=== PATIENT | female | born 1975 | race Caucasian/White ===

== ENCOUNTER 2016-09-21 08:00 | Outpatient (CLI) | payer MEDICARE, MEDICAID ==
[2016-09-21 17:58] LABS: BILIRUBIN,URINE NEGATIVE (NEGATIVE)
[2016-09-21 18:18] LABS: ALBUMIN/GLOBULIN RATIO 1.3 (1.0-2.2); BILIRUBIN,TOTAL 0.4 mg/dL (0.2-1.0); BUN - BLOOD UREA NITROGEN 5 mg/dL (6-20); CALCIUM 8.9 mg/dL (8.5-10.3); CARBON DIOXIDE - CO2 19 mmol/L (21-32); CHLORIDE 107 mmol/L (101-111); CHOL/HDL RATIO 5.7 (<4.4); CHOLESTEROL 238 mg/dL; CREATININE 0.4 mg/dL (0.4-1.0); GFR - MDRD 176 (>89); GLUCOSE 78 mg/dL (70-100); HDL CHOLESTEROL 42 mg/dL; LDL/HDL RATIO 3.8 (<4.4); POTASSIUM 4.1 mmol/L (3.5-5.0); SODIUM 135 mmol/L (135-145); TOTAL PROTEIN 6.9 g/dL (6.7-8.2); TRIGLYCERIDES 178 mg/dL; VLDL CHOLESTEROL 36 mg/dL; WBC,URINE 0-3 /HPF (0-5)
[2016-09-21 18:25] LABS: BASOPHILS # (AUTO) 0.1 10^3/uL (0.0-0.1); BASOPHILS % (AUTO) 0.7 %; EOSINOPHILS # (AUTO) 0.2 10^3/uL (0.0-0.7); EOSINOPHILS % (AUTO) 2.7 %; HCT - HEMATOCRIT 33.2 % (37.0-47.0); HGB - HEMOGLOBIN 10.5 g/dL (12.0-16.0); LYMPHOCYTES # (AUTO) 3.5 10^3/uL (1.5-3.5); LYMPHOCYTES % (AUTO) 38.3 %; MEAN CORPUSCULAR HEMOGLOBIN 22.5 pg (27.0-31.0); MEAN CORPUSCULAR HGB CONC 31.6 g/dL (32.0-36.0); MEAN CORPUSCULAR VOLUME 71.2 fL (81.0-99.0); MEAN PLATELET VOLUME 7.2 fL (7.9-10.8); MONOCYTES # (AUTO) 0.6 10^3/uL (0.0-1.0); MONOCYTES % (AUTO) 6.3 %; NEUTROPHILS # (AUTO) 4.7 10^3/uL (1.5-6.6); NUCLEATED RED BLOOD CELLS AUTO 0.1 /100WBC; RED BLOOD COUNT 4.66 10^6/uL (4.20-5.40); RED CELL DISTRIBUTION WIDTH 18.7 % (12.0-15.0); UNCORRECTED WHITE BLOOD COUNT 9.1 x10^3/uL; WHITE BLOOD COUNT 9.1 x10^3/uL (4.8-10.8)
[2016-09-21 18:38] LABS: HEMOGLOBIN A1C 0.38 g/dL
[2016-09-21 18:50] LABS: THYROID STIMULATING HORMONE 2.77 uIU/mL (0.34-5.60)
[2016-09-21 19:38] LABS: PLATELET ESTIMATE, MANUAL NORMAL (130-450,000) (NORMAL); PLATELET MORPHOLOGY NORMAL APPEARANCE (NORMAL)
[2016-09-21 19:40] LABS: WBC MORPHOLOGY (MULTIPLE) NORMAL APPEARANCE (NORMAL)
== END 2016-09-21 23:59 ==
LOC: LAB.S 08:00
PROVIDERS: ATTEND Nurse Practitioner Family
DX: E11.9 Type 2 diabetes mellitus without complications (principal)
CPT/HCPCS: 36415; 80053; 80061; 81001; 82043; 82570; 83036; 84439; 84443; 85025; 87086

== ENCOUNTER 2016-10-19 10:59 | Outpatient (CLI) | payer MEDICARE, MEDICAID | END 2016-10-19 11:00 | disposition home or self-care (01) | DX: D53.9 Nutritional anemia, unspecified (principal) ==

== ENCOUNTER 2017-01-18 12:01 | Outpatient (CLI) | payer MEDICAID, MEDICARE ==
[2017-01-18 18:12] LABS: BILIRUBIN,DIRECT 0.1 mg/dL (0.1-0.5); BILIRUBIN,TOTAL 0.2 mg/dL (0.2-1.0); CHOL/HDL RATIO 3.6 (<4.4); CHOLESTEROL 155 mg/dL; HDL CHOLESTEROL 43 mg/dL; IRON 94 ug/dL (28-170); LDL/HDL RATIO 1.9 (<4.4); TOTAL IRON BINDING CAPACITY 361 ug/dL (250-450); TRANSFERRIN 258 mg/dL (192-382); TRIGLYCERIDES 147 mg/dL; VLDL CHOLESTEROL 29 mg/dL
[2017-01-18 18:20] LABS: THYROID STIMULATING HORMONE 1.71 uIU/mL (0.34-5.60)
[2017-01-18 18:21] LABS: BASOPHILS # (AUTO) 0.1 10^3/uL (0.0-0.1); BASOPHILS % (AUTO) 0.7 %; EOSINOPHILS # (AUTO) 0.3 10^3/uL (0.0-0.7); FERRITIN 19.5 ng/mL (11.0-306.8); HCT - HEMATOCRIT 42.1 % (37.0-47.0); HGB - HEMOGLOBIN 14.1 g/dL (12.0-16.0); LYMPHOCYTES # (AUTO) 2.7 10^3/uL (1.5-3.5); LYMPHOCYTES % (AUTO) 25.9 %; MEAN CORPUSCULAR HEMOGLOBIN 29.9 pg (27.0-31.0); MEAN CORPUSCULAR HGB CONC 33.5 g/dL (32.0-36.0); MEAN CORPUSCULAR VOLUME 89.4 fL (81.0-99.0); MEAN PLATELET VOLUME 7.5 fL (7.9-10.8); MONOCYTES # (AUTO) 0.5 10^3/uL (0.0-1.0); MONOCYTES % (AUTO) 4.7 %; NEUTROPHILS # (AUTO) 6.8 10^3/uL (1.5-6.6); NEUTROPHILS % (AUTO) 65.7 %; RED CELL DISTRIBUTION WIDTH 17.8 % (12.0-15.0); UNCORRECTED WHITE BLOOD COUNT 10.4 x10^3/uL; WHITE BLOOD COUNT 10.4 x10^3/uL (4.8-10.8)
[2017-01-18 19:56] LABS: PLATELET ESTIMATE, MANUAL NORMAL (130-450,000) (NORMAL); PLATELET MORPHOLOGY NORMAL APPEARANCE (NORMAL)
[2017-01-18 19:57] LABS: WBC MORPHOLOGY (MULTIPLE) NORMAL APPEARANCE (NORMAL)
== END 2017-01-18 12:02 | disposition home or self-care (01) ==
LOC: LAB.S 12:01
PROVIDERS: ATTEND Nurse Practitioner Family
DX: E78.5 Hyperlipidemia, unspecified (principal); D53.9 Nutritional anemia, unspecified; E03.9 Hypothyroidism, unspecified
CPT/HCPCS: 36415; 80061; 80076; 82728; 83540; 84439; 84443; 84466; 85025

== ENCOUNTER 2017-06-21 08:58 | Outpatient (CLI) | payer MEDICARE, MEDICAID ==
[2017-06-21 17:55] LABS: BASOPHILS % (AUTO) 0.6 %; EOSINOPHILS % (AUTO) 3.3 %; HGB - HEMOGLOBIN 13.6 g/dL (12.0-16.0); LYMPHOCYTES % (AUTO) 12.8 %; MEAN CORPUSCULAR HEMOGLOBIN 30.5 pg (27.0-31.0); MEAN CORPUSCULAR HGB CONC 32.8 g/dL (32.0-36.0); MEAN PLATELET VOLUME 7.1 fL (7.9-10.8); MONOCYTES % (AUTO) 6.4 %; NEUTROPHILS % (AUTO) 76.9 %; PLT - PLATELET COUNT 360 10^3/uL (130-450); RED BLOOD COUNT 4.45 10^6/uL (4.20-5.40)
[2017-06-21 18:04] LABS: ABNORMAL LYMPHS % (MANUAL) 0 %
[2017-06-21 19:37] LABS: % IRON SATURATION 26 % (20-50); IRON 82 ug/dL (28-170); TOTAL IRON BINDING CAPACITY 314 ug/dL (250-450); TRANSFERRIN 224 mg/dL (192-382)
[2017-06-21 19:51] LABS: BAND NEUTROPHILS % (MANUAL) 10 %; DIFFERENTIAL COMMENT MANUAL DIFFERENTIAL; EOSINOPHILS # (MANUAL) 0.8 10^3/uL (0-0.7); LYMPHOCYTES # (MANUAL) 1.9 10^3/uL (1.5-3.5); LYMPHOCYTES % (MANUAL) 10 %; MONOCYTES # (MANUAL) 0.8 10^3/uL (0.0-1.0); NEUTROPHILS # (MANUAL) 15.6 10^3/uL (1.5-6.6); NEUTROPHILS % (MANUAL) 72 %; PLATELET ESTIMATE, MANUAL NORMAL (130-450,000) (NORMAL); PLATELET MORPHOLOGY NORMAL APPEARANCE (NORMAL); RBC MORPHOLOGY (MULTIPLE) NORMAL APPEARANCE (NORMAL)
[2017-06-21 20:21] LABS: HB2 TOTAL 14.7 g/dL; HEMOGLOBIN A1C 0.5 g/dL; HEMOGLOBIN A1C % 5.3 % (4.6-6.2)
== END 2017-06-21 08:59 | disposition home or self-care (01) ==
LOC: LAB.S 08:58
PROVIDERS: ATTEND Nurse Practitioner Family
DX: D64.9 Anemia, unspecified (principal); E11.9 Type 2 diabetes mellitus without complications
CPT/HCPCS: 36415; 82728; 83036; 83540; 84466; 85025

== ENCOUNTER 2018-01-31 09:19 | Outpatient (CLI) | payer MEDICARE, MEDICAID ==
[2018-01-31 18:21] LABS: BASOPHILS # (AUTO) 0.1 10^3/uL (0.0-0.1); BASOPHILS % (AUTO) 0.5 %; EOSINOPHILS # (AUTO) 0.3 10^3/uL (0.0-0.7); HGB - HEMOGLOBIN 13.2 g/dL (12.0-16.0); LYMPHOCYTES # (AUTO) 2.4 10^3/uL (1.5-3.5); LYMPHOCYTES % (AUTO) 21.6 %; MEAN CORPUSCULAR HEMOGLOBIN 31.5 pg (27.0-31.0); MEAN CORPUSCULAR HGB CONC 32.9 g/dL (32.0-36.0); MEAN CORPUSCULAR VOLUME 95.9 fL (81.0-99.0); MEAN PLATELET VOLUME 7.3 fL (7.9-10.8); MONOCYTES # (AUTO) 0.7 10^3/uL (0.0-1.0); MONOCYTES % (AUTO) 6.2 %; NEUTROPHILS # (AUTO) 7.8 10^3/uL (1.5-6.6); NEUTROPHILS % (AUTO) 68.7 %; PLT - PLATELET COUNT 277 10^3/uL (130-450); RED BLOOD COUNT 4.21 10^6/uL (4.20-5.40); RED CELL DISTRIBUTION WIDTH 13.3 % (12.0-15.0); WHITE BLOOD COUNT 11.3 x10^3/uL (4.8-10.8)
[2018-01-31 19:06] LABS: ALBUMIN 3.8 g/dL (3.2-5.5); ALBUMIN/GLOBULIN RATIO 1.4 (1.0-2.2); ALKALINE PHOSPHATASE 32 IU/L (42-121); ALT ALANINE AMINOTRANSFERASE 25 IU/L (10-60); AST ASPARTATE AMINOTRANSFERASE 23 IU/L (10-42); BILIRUBIN,TOTAL 0.3 mg/dL (0.2-1.0); BUN - BLOOD UREA NITROGEN 11 mg/dL (6-20); CALCIUM 8.7 mg/dL (8.5-10.3); CARBON DIOXIDE - CO2 25 mmol/L (21-32); CHLORIDE 103 mmol/L (101-111); CHOL/HDL RATIO 2.7 (<4.4); CHOLESTEROL 145 mg/dL; CREATININE 0.3 mg/dL (0.4-1.0); GFR - MDRD 244 (>89); GLUCOSE 95 mg/dL (70-100); HDL CHOLESTEROL 53 mg/dL; LDL CHOLESTEROL,CALCULATED 79 mg/dL; LDL/HDL RATIO 1.5 (<4.4); SODIUM 137 mmol/L (135-145); TOTAL PROTEIN 6.5 g/dL (6.7-8.2); VLDL CHOLESTEROL 13 mg/dL
[2018-01-31 19:27] LABS: HB2 TOTAL 13.5 g/dL; HEMOGLOBIN A1C 0.41 g/dL; HEMOGLOBIN A1C % 4.9 % (4.6-6.2)
== END 2018-01-31 09:20 | disposition home or self-care (01) ==
LOC: LAB.S 09:19
PROVIDERS: ATTEND Nurse Practitioner Family
DX: E11.9 Type 2 diabetes mellitus without complications (principal); E03.9 Hypothyroidism, unspecified
CPT/HCPCS: 36415; 80053; 80061; 82043; 83036; 83721; 84443; 85025

== ENCOUNTER 2018-06-07 12:22 | Outpatient (CLI) | payer MEDICAID, MEDICARE ==
[2018-06-07 18:18] LABS: THYROID STIMULATING HORMONE 1.98 uIU/mL (0.34-5.60)
[2018-06-07 18:20] LABS: FREE T4 (FREE THYROXINE) 0.74 ng/dL (0.58-1.64)
== END 2018-06-07 23:59 | disposition home or self-care (01) ==
LOC: LAB.F 12:22
PROVIDERS: ATTEND Nurse Practitioner Family
DX: E03.9 Hypothyroidism, unspecified (principal)
CPT/HCPCS: 36415; 84439; 84443

== ENCOUNTER 2018-08-15 08:00 | Outpatient (CLI) | payer MEDICARE ==
[2018-08-15 18:26] LABS: HB2 TOTAL 14.6 g/dL; HEMOGLOBIN A1C 0.52 g/dL; HEMOGLOBIN A1C % 5.4 % (4.6-6.2)
== END 2018-08-15 23:59 | disposition home or self-care (01) ==
LOC: LAB.S 08:00
PROVIDERS: ATTEND Nurse Practitioner Family
DX: E11.9 Type 2 diabetes mellitus without complications (principal)
CPT/HCPCS: 36415; 83036

== ENCOUNTER 2019-08-30 06:25 | Outpatient (CLI) | payer MEDICARE ==
[2019-08-30 06:41] LABS: BASOPHILS # (AUTO) 0.1 10^3/uL (0.0-0.1); BASOPHILS % (AUTO) 0.6 %; EOSINOPHILS # (AUTO) 0.5 10^3/uL (0.0-0.7); EOSINOPHILS % (AUTO) 3.2 %; HGB - HEMOGLOBIN 14.1 g/dL (12.0-16.0); LYMPHOCYTES # (AUTO) 3.9 10^3/uL (1.5-3.5); LYMPHOCYTES % (AUTO) 27.5 %; MEAN CORPUSCULAR HEMOGLOBIN 32.1 pg (27.0-31.0); MEAN CORPUSCULAR VOLUME 94.5 fL (81.0-99.0); MEAN PLATELET VOLUME 8.4 fL (7.9-10.8); MONOCYTES # (AUTO) 0.9 10^3/uL (0.0-1.0); MONOCYTES % (AUTO) 6.4 %; NEUTROPHILS # (AUTO) 8.7 10^3/uL (1.5-6.6); NEUTROPHILS % (AUTO) 61.8 %; PLT - PLATELET COUNT 292 10^3/uL (130-450); RED BLOOD COUNT 4.39 10^6/uL (4.20-5.40); RED CELL DISTRIBUTION WIDTH 12.8 % (12.0-15.0); WHITE BLOOD COUNT 14.2 x10^3/uL (4.8-10.8)
[2019-08-30 07:00] LABS: ALBUMIN 3.8 g/dL (3.2-5.5); ALBUMIN/GLOBULIN RATIO 1.2 (1.0-2.2); ALKALINE PHOSPHATASE 44 IU/L (42-121); ALT ALANINE AMINOTRANSFERASE 19 IU/L (10-60); AST ASPARTATE AMINOTRANSFERASE 21 IU/L (10-42); BILIRUBIN,TOTAL 0.5 mg/dL (0.2-1.0); BUN - BLOOD UREA NITROGEN 10 mg/dL (6-20); CALCIUM 9.4 mg/dL (8.5-10.3); CARBON DIOXIDE - CO2 25 mmol/L (21-32); CHLORIDE 102 mmol/L (101-111); CHOL/HDL RATIO 4.4 (<4.4); CHOLESTEROL 215 mg/dL; CREATININE 0.5 mg/dL (0.4-1.0); GLUCOSE 106 mg/dL (70-100); HDL CHOLESTEROL 49 mg/dL; LDL CHOLESTEROL,CALCULATED 132 mg/dL; LDL/HDL RATIO 2.7 (<4.4); SODIUM 137 mmol/L (135-145); TOTAL PROTEIN 6.9 g/dL (6.7-8.2); VLDL CHOLESTEROL 34 mg/dL
[2019-08-30 07:28] LABS: HB2 TOTAL 14.6 g/dL; HEMOGLOBIN A1C 0.52 g/dL; HEMOGLOBIN A1C % 5.4 % (4.6-6.2)
== END 2019-08-30 06:26 | disposition home or self-care (01) ==
LOC: LAB 06:25
PROVIDERS: ATTEND Registered Nurse
DX: E11.9 Type 2 diabetes mellitus without complications (principal); R94.5 Abnormal results of liver function studies; J45.909 Unspecified asthma, uncomplicated; E03.9 Hypothyroidism, unspecified; E78.5 Hyperlipidemia, unspecified; F41.9 Anxiety disorder, unspecified; F32.9 Major depressive disorder, single episode, unspecified
CPT/HCPCS: 36415; 80053; 80061; 83036; 83721; 84443; 85025

== ENCOUNTER 2019-11-22 08:00 | Outpatient (CLI) | payer MEDICARE ==
[2019-11-22 15:11] LABS: BASOPHILS # (AUTO) 0.1 10^3/uL (0.0-0.1); BASOPHILS % (AUTO) 0.6 %; EOSINOPHILS # (AUTO) 0.4 10^3/uL (0.0-0.7); EOSINOPHILS % (AUTO) 3.6 %; HGB - HEMOGLOBIN 14.6 g/dL (12.0-16.0); LYMPHOCYTES # (AUTO) 3.4 10^3/uL (1.5-3.5); LYMPHOCYTES % (AUTO) 27.7 %; MEAN CORPUSCULAR HEMOGLOBIN 31.7 pg (27.0-31.0); MEAN CORPUSCULAR HGB CONC 33.3 g/dL (32.0-36.0); MEAN CORPUSCULAR VOLUME 95.2 fL (81.0-99.0); MEAN PLATELET VOLUME 9.2 fL (7.9-10.8); MONOCYTES # (AUTO) 0.9 10^3/uL (0.0-1.0); MONOCYTES % (AUTO) 7.3 %; NEUTROPHILS # (AUTO) 7.3 10^3/uL (1.5-6.6); NEUTROPHILS % (AUTO) 60.5 %; PLT - PLATELET COUNT 295 10^3/uL (130-450); RED CELL DISTRIBUTION WIDTH 12.4 % (12.0-15.0); WHITE BLOOD COUNT 12.1 x10^3/uL (4.8-10.8)
[2019-11-22 15:39] LABS: ALBUMIN 4.1 g/dL (3.2-5.5); ALBUMIN/GLOBULIN RATIO 1.5 (1.0-2.2); BILIRUBIN,TOTAL 0.2 mg/dL (0.2-1.0); CALCIUM 9.5 mg/dL (8.5-10.3); CREATININE 0.4 mg/dL (0.4-1.0); TOTAL PROTEIN 6.8 g/dL (6.7-8.2)
[2019-11-23 08:58] LABS: MAGNESIUM 1.8 mg/dL (1.7-2.8)
== END 2019-11-22 23:59 | disposition home or self-care (01) ==
LOC: LAB.S 08:00
PROVIDERS: ATTEND Physician Assistant
DX: N39.0 Urinary tract infection, site not specified (principal); R25.2 Cramp and spasm
CPT/HCPCS: 36415; 80053; 82550; 83735; 85025; 87086

== ENCOUNTER 2020-01-16 18:42 | Inpatient (IN) | payer MEDICARE, MEDICAID ==
--- NOTE | 2020-01-16 19:58 | ED Physician Documentation ---
PD HPI SKIN - Stated complaint Stated Complaint: FEVER - Chief complaint Chief Complaint: Wound - History obtained from History obtained from: Patient - Additional information Additional information: Patient is a 44-year-old female who presents with a chief complaint of right gluteal skin infection with a history of MRSA also reports fevers of 102 at home. No treatment prior to arrival. She is on metformin as well.She denies any history of IV drug abuse. Review of Systems Constitutional: reports: Fever, Reviewed and negative Eyes: reports: Reviewed and negative Ears: reports: Reviewed and negative Nose: reports: Reviewed and negative Throat: reports: Reviewed and negative Cardiac: reports: Reviewed and negative Respiratory: reports: Reviewed and negative GI: reports: Reviewed and negative : reports: Reviewed and negative Skin: reports: Lesions Musculoskeletal: reports: Reviewed and negative Neurologic: reports: Reviewed and negative Psychiatric: reports: Reviewed and negative Endocrine: reports: Reviewed and negative Immunocompromised: reports: Reviewed and negative PD PAST MEDICAL HISTORY - Past Medical History Cardiovascular: High cholesterol Respiratory: Asthma Endocrine/Autoimmune: HyPOthyroidism, Type 2 diabetes GI: None : None HEENT: None Psych: None Musculoskeletal: None Derm: Other drug resistant infections - Past Surgical History Past Surgical History: Yes - Present Medications Home Medications: Ambulatory Orders Medication Instructions Recorded Confirmed Albuterol [Proventil Hfa] 1 puffs INH ONCE PRN 08/18/12 12/15/15 Baclofen 20 mg PO TID 08/18/12 12/15/15 DULoxetine [Cymbalta] 60 mg PO DAILY 08/18/12 12/15/15 Levothyroxine [Synthroid] 50 mcg PO QDAC 08/18/12 12/15/15 Metformin HCl [Fortamet] 850 mg PO TID 08/18/12 12/15/15 Sulfamethoxazole/Trimethoprim 1 each PO BID 7 Days tablet 12/15/15 [Bactrim Ds Tablet] - Allergies Allergies/Adverse Reactions: Allergies Allergy/AdvReac Type Severity Reaction Status Date / Time Penicillins Allergy Severe See Verified 11/07/14 06:05 comments - Social History Does the pt smoke?: Yes Smoking Status: Current every day smoker Does the pt drink ETOH?: Yes Does the pt have substance abuse?: Yes - POLST Patient has POLST: No PD ED PE NORMAL - Vitals Vital signs reviewed: Yes - General General: Alert and oriented X 3, No acute distress - HEENT HEENT: PERRL - Neck Neck: Supple, no meningeal sign - Cardiac Cardiac: RRR, No murmur - Respiratory Respiratory: Clear bilaterally - Abdomen Abdomen: Normal bowel sounds, Soft, Non tender, Non distended - Rectal Rectal: Other (Female nurse in the room for exam on the right gluteal region there is approximately a 10 cm x 5 cm area of induration without fluctuance there is diffuse erythema as well there is no involvement near the anus. There is no crepitus. No inguinal lymphadenopathy.) - Derm Derm: Warm and dry - Extremities Extremities: No deformity - Neuro Neuro: Alert and oriented X 3 - Psych Psych: Normal mood, Normal affect Results - Vitals Vitals: Vital Signs - 24 hr 01/16/20 01/16/20 18:48 21:00 Temperature 37.7 C H 37.5 C Heart Rate 112 H 63 Respiratory 18 16 Rate Blood Pressure 124/64 102/62 O2 Saturation 97 98 Oxygen O2 Source Room air - Labs Labs: Laboratory Tests 01/16/20 01/16/20 01/16/20 20:15 20:28 20:28 WBC 24.4 H RBC 3.85 L Hgb 12.5 Hct 36.2 L MCV 94.0 MCH 32.5 H MCHC 34.5 RDW 12.6 Plt Count 195 MPV 9.0 Neut # (Auto) Not Reportable Lymph # (Auto) Not Reportable [place] # (Auto) Not Reportable Eos # (Auto) Not Reportable Baso # (Auto) Not Reportable Absolute Nucleated RBC Not Reportable Total Counted 100 Band Neuts % (Manual) 4 Abnorm Lymph % (Manual) 0 Nucleated RBC % Not Reportable Neutrophils # (Manual) 21.0 H Lymphocytes # (Manual) 2.0 Monocytes # (Manual) 1.5 H Eosinophils # (Manual) 0.0 Basophils # (Manual) 0.0 Differential Comment MANUAL DIFFERENTIAL Platelet Estimate NORMAL (130-450,000) RBC Morph Micro Appear NORMAL APPEARANCE PT INR APTT Sodium 132 L Potassium 3.7 Chloride 99 L Carbon Dioxide 23 Anion Gap 10.0 BUN 8 Creatinine 0.5 Estimated GFR (MDRD) 134 Glucose 103 H Lactic Acid Calcium 8.6 Total Bilirubin 0.5 AST 15 ALT 14 Alkaline Phosphatase 53 Total Creatine Kinase 67 Total Protein 6.3 L Albumin 2.9 L Globulin 3.4 Albumin/Globulin Ratio 0.9 L Lipase 23 Urine Color YELLOW Urine Clarity CLEAR Urine pH 7.0 Ur Specific [place] 1.010 Urine Protein NEGATIVE Urine Glucose (UA) NEGATIVE Urine Ketones NEGATIVE Urine Occult Blood NEGATIVE Urine Nitrite NEGATIVE Urine Bilirubin NEGATIVE Urine Urobilinogen 0.2 (NORMAL) Ur Leukocyte Esterase NEGATIVE Ur Microscopic Review NOT INDICATED Urine Culture Comments NOT INDICATED Urine HCG, Qual NEGATIVE Urine Opiates Screen NEGATIVE Ur Oxycodone Screen NEGATIVE Urine Methadone Screen NEGATIVE Ur Propoxyphene Screen NEGATIVE Ur Barbiturates Screen NEGATIVE Ur Tricyclics Screen NEGATIVE Ur Phencyclidine Scrn NEGATIVE Ur Amphetamine Screen NEGATIVE U Methamphetamines Scrn NEGATIVE U Benzodiazepines Scrn NEGATIVE Urine Cocaine Screen NEGATIVE U Cannabinoids Screen POSITIVE H Ethyl Alcohol < 5.0 01/16/20 01/16/20 20:28 20:28 WBC RBC Hgb Hct MCV MCH MCHC RDW Plt Count MPV Neut # (Auto) Lymph # (Auto) [place] # (Auto) Eos # (Auto) Baso # (Auto) Absolute Nucleated RBC Total Counted Band Neuts % (Manual) Abnorm Lymph % (Manual) Nucleated RBC % Neutrophils # (Manual) Lymphocytes # (Manual) Monocytes # (Manual) Eosinophils # (Manual) Basophils # (Manual) Differential Comment Platelet Estimate RBC Morph Micro Appear PT 16.2 H INR 1.5 H APTT 31.7 Sodium Potassium Chloride Carbon Dioxide Anion Gap BUN Creatinine Estimated GFR (MDRD) Glucose Lactic Acid 0.7 Calcium Total Bilirubin AST ALT Alkaline Phosphatase Total Creatine Kinase Total Protein Albumin Globulin Albumin/Globulin Ratio Lipase Urine Color Urine Clarity Urine pH Ur Specific [place] Urine Protein Urine Glucose (UA) Urine Ketones Urine Occult Blood Urine Nitrite Urine Bilirubin Urine Urobilinogen Ur Leukocyte Esterase Ur Microscopic Review Urine Culture Comments Urine HCG, Qual Urine Opiates Screen Ur Oxycodone Screen Urine Methadone Screen Ur Propoxyphene Screen Ur Barbiturates Screen Ur Tricyclics Screen Ur Phencyclidine Scrn Ur Amphetamine Screen U Methamphetamines Scrn U Benzodiazepines Scrn Urine Cocaine Screen U Cannabinoids Screen Ethyl Alcohol PD MEDICAL DECISION MAKING - ED course Complexity details: reviewed old records, reviewed results, re-evaluated patient, d/w patient ED course: 44-year-old female presents with fever and tachycardia and leukocytosis blood cultures were drawn x2 as well as lactate empirically treated with Rocephin and vancomycin given her history of MRSA. CT scan shows no signs of free air. I did perform a rapid bedside ultrasound that showed no obvious abscess. Patient will will be admitted to the hospitalist. - Consults Consults: Discussed case with (dr ortiz will admit) Departure - Departure Disposition: 66 [facility] DC/[facility] Clinical Impression: Cellulitis, gluteal, right Condition: Stable Discharge Date/Time: 01/16/20 23:45
[2020-01-16] MEDS ORDERED: SODIUM CHLORIDE 0.9% 1,000 ML IV STA (20:12)
[2020-01-16] MEDS ORDERED: CLINDAMYCIN 600 MG/50 ML 50 ML IV ONE (20:12)
[2020-01-16] MEDS ORDERED: ACETAMINOPHEN 1,000 MG/100 ML 100 ML IV ONE (20:13)
[2020-01-16] MEDS ORDERED: ONDANSETRON 4 MG/2 ML VIAL IVP STA (20:13)
[2020-01-16] MEDS ORDERED: MORPHINE 2 MG/ML CARPUJECT IVP STA (20:13)
[2020-01-16 20:39] LABS: BASOPHILS % (AUTO) 0.5 %; EOSINOPHILS % (AUTO) 0.1 %; HGB - HEMOGLOBIN 12.5 g/dL (12.0-16.0); LYMPHOCYTES % (AUTO) 7.2 %; MEAN CORPUSCULAR HEMOGLOBIN 32.5 pg (27.0-31.0); MEAN CORPUSCULAR HGB CONC 34.5 g/dL (32.0-36.0); MONOCYTES % (AUTO) 6.4 %; NEUTROPHILS % (AUTO) 83.9 %; PLT - PLATELET COUNT 195 10^3/uL (130-450); RED BLOOD COUNT 3.85 10^6/uL (4.20-5.40); RED CELL DISTRIBUTION WIDTH 12.6 % (12.0-15.0); WHITE BLOOD COUNT 24.4 x10^3/uL (4.8-10.8)
[2020-01-16 20:42] LABS: ABNORMAL LYMPHS % (MANUAL) 0 %
[2020-01-16 20:48] LABS: INR 1.5 (0.8-1.2); PT - PROTHROMBIN TIME 16.2 secs (9.9-12.6)
[2020-01-16] MEDS ORDERED: IOVERSOL 320 100 ML VIAL IVP ONE ×2 (20:52→22:09)
[2020-01-16 20:53] LABS: ALBUMIN 2.9 g/dL (3.2-5.5); ALBUMIN/GLOBULIN RATIO 0.9 (1.0-2.2); ALKALINE PHOSPHATASE 53 IU/L (42-121); ALT ALANINE AMINOTRANSFERASE 14 IU/L (10-60); AST ASPARTATE AMINOTRANSFERASE 15 IU/L (10-42); BILIRUBIN,TOTAL 0.5 mg/dL (0.2-1.0); BUN - BLOOD UREA NITROGEN 8 mg/dL (6-20); CALCIUM 8.6 mg/dL (8.5-10.3); CARBON DIOXIDE - CO2 23 mmol/L (21-32); CHLORIDE 99 mmol/L (101-111); CK- CREATINE KINASE 67 IU/L (22-269); CREATININE 0.5 mg/dL (0.4-1.0); GLUCOSE 103 mg/dL (70-100); LIPASE 23 U/L (22-51); SODIUM 132 mmol/L (135-145); TOTAL PROTEIN 6.3 g/dL (6.7-8.2)
[2020-01-16 20:55] LABS: PARTIAL THROMBOPLASTIN TIME 31.7 secs (24.9-33.3)
[2020-01-16] MEDS ORDERED: VANCOMYCIN INJ 1 GM in SODIUM CHLORIDE 0.9% 500 ML IV STA (20:58)
[2020-01-16 21:02] LABS: MUDS CUTOFF CONCENTRATIONS CUTOFF CONC BELOW:
[2020-01-16 21:07] LABS: BILIRUBIN,URINE NEGATIVE (NEGATIVE); GLUCOSE, URINE (UA) NEGATIVE (NEGATIVE); KETONES,URINE (UA) NEGATIVE (NEGATIVE); LEUKOCYTE ESTERASE, URINE NEGATIVE (NEGATIVE); NITRITE,URINE NEGATIVE (NEGATIVE); OCCULT BLOOD,URINE NEGATIVE (NEGATIVE); PROTEIN,URINE NEGATIVE (NEGATIVE); UROBILINOGEN,URINE 0.2 (NORMAL) E.U./dL (NORMAL)
[2020-01-16 21:09] LABS: CLARITY,URINE CLEAR (CLEAR); HCG UR QUAL NEGATIVE
[2020-01-16 21:11] LABS: BAND NEUTROPHILS % (MANUAL) 4 %; DIFFERENTIAL COMMENT MANUAL DIFFERENTIAL; LYMPHOCYTES % (MANUAL) 8 %; MONOCYTES # (MANUAL) 1.5 10^3/uL (0.0-1.0); PLATELET ESTIMATE, MANUAL NORMAL (130-450,000) (NORMAL); RBC MORPHOLOGY (MULTIPLE) NORMAL APPEARANCE (NORMAL)
[2020-01-16 21:18] LABS: AMPHETAMINE SCREEN,URINE NEGATIVE (NEGATIVE); BENZODIAZEPINES SCREEN, URINE NEGATIVE (NEGATIVE); COCAINE SCREEN URINE NEGATIVE (NEGATIVE); METHADONE SCREEN, URINE NEGATIVE (NEGATIVE); METHAMPHETAMINES SCREEN, URINE NEGATIVE (NEGATIVE); OPIATE SCREEN, URINE NEGATIVE (NEGATIVE); OXYCODONE SCREEN, URINE NEGATIVE (NEGATIVE); PROPOXYPHENE SCREEN, URINE NEGATIVE (NEGATIVE); TRICYCLIC ANTIDEPRESSANT,URINE NEGATIVE (NEGATIVE)
[2020-01-16] MEDS ORDERED: VANCOMYCIN 1 GM VIAL ONE (21:32)
[2020-01-16] MEDS ORDERED: SODIUM CHLORIDE FLUSH 0.9% 10 ML SYRINGE IVP PRN (22:38)
[2020-01-16] MEDS ORDERED: ONDANSETRON 4 MG/2 ML VIAL IVP PRN (22:38)
--- NOTE | 2020-01-16 22:43 | HISTORY & PHYSICAL EXAMINATION ---
Chief Complaint - Chief Complaint Chief Complaint: erythema on right gluteal area History of Present Illness - Admitted From Admitted From:: [facility] ED - History Obtained From Records Reviewed: Yes History obtained from: Patient - History of Present Illness HPI Comment/Other: Patient is a 44-year-old female with medical history significant for diabetes mellitus on metformin, hypothyroidism, Depression who presented to the ED with redness over the right buttock and fever. This has been going on for 3 days. She has a history of necrotizing fasciitis for which surgery was done with excision of the involved area which was the inner right thigh. She is also had an abscess in the past for which surgery was done to the right lower abdomen. As a result of these previous infectious and surgical histories she was concerned and came to the emergency room for evaluation. In the ED she was noted to be tachycardic with a heart rate of 112. She also had a temperature of 37.7 C and a white blood cell count of 24. There was significant erythema to the right buttock area. She reported pain in the general area. CT scan of the pelvis with contrast was negative for any abscess. She denied chest pain, abdominal pain, dyspnea. She was nauseous earlier but was given medication and her symptoms resolved. As a result of her clinical presentation she is being admitted for further treatment. History - Past Medical History Cardiovascular: reports: High cholesterol Respiratory: reports: Asthma Endocrine/Autoimmune: reports: HyPOthyroidism, Type 2 diabetes GI: reports: None : reports: None HEENT: reports: None Psych: reports: None Musculoskeletal: reports: None Derm: reports: Other drug resistant infections MRSA Hx?: Yes Other Past Medical History: Hx of necrotizing fascitis - Past Surgical History General: reports: Other Ortho: reports: Other (right humeral fracture with plates placed) - Family & Social History Family History Comment/Other: History of cervical cancer sister Living arrangement: At home Living Situation: With family Social History Notes: Patient smokes 1/2 packs of cigarettes a day. She has been smoking for 30+ years. She also uses marijuana. - POLST Patient has POLST: No POLST Status: Full Code Meds/Allgy - Home Medications Home Medications: Ambulatory Orders Medication Instructions Recorded Confirmed Albuterol [Proventil Hfa] 1 puffs INH Q4HR PRN 08/18/12 01/17/20 Baclofen 20 mg PO QID 08/18/12 01/17/20 DULoxetine [Cymbalta] 60 mg PO DAILY 08/18/12 01/17/20 Gabapentin 300 - 600 mg PO QPM@2200 01/17/20 01/17/20 Gabapentin [Neurontin] 300 mg PO BID@1000,1600 01/17/20 01/17/20 Levothyroxine [Synthroid] 75 mcg PO QDAC 01/17/20 01/17/20 Metformin HCl [Glucophage] 850 mg PO BID 01/17/20 01/17/20 - Allergies Allergies/Adverse Reactions: Allergies Allergy/AdvReac Type Severity Reaction Status Date / Time Penicillins Allergy Severe See Verified 11/07/14 06:05 comments Review of Systems - Constitutional Constitutional: reports: Fever - Eyes Eyes: denies: Pain, Dipolpia - Ears, Nose & Throat Ears, Nose & Throat: denies: Ear pain - Cardiovascular Cariovascular: denies: Irregular heart rate, Chest pain, Edema - Respiratory Respiratory: denies: SOB at rest, SOB with exertion - Gastrointestinal Gastrointestinal: reports: Nausea. denies: Abdominal pain, Abdominal distention, Constipation, Vomiting - Genitourinary Genitourinary: denies: Dysuria, Frequency, Urgency, Hematuria - Musculoskeletal Musculoskeletal: denies: Muscle pain, Back pain, Muscle aches, Stiffness - Integumentary Integumentary: reports: Rash (right buttock) - Neurological Neurological: denies: General weakness, Focal weakness, Headache, Dizziness Prior Level of Functionality: Patient is independent of activities of daily living Exam - Vital Signs Vital Signs: Vital Signs x48h Temp Pulse Resp BP Pulse Ox 01/16/20 18:48 37.7 C H 112 H 18 124/64 97 - Physical Exam General Appearance: positive: Alert, Moderate distress Eyes Bilateral: positive: PERRL, EOMI ENT: positive: Dry mucous membranes Neck: positive: No JVD, Trachea midline Respiratory: positive: Chest non-tender, No respiratory distress, Breath sounds nml. negative: Wheezes, Rales, Rhonchi Cardiovascular: positive: Tachycardia. negative: Irregularly irregular Abdomen: positive: Non-tender, No organomegaly, Nml bowel sounds, No distention. negative: Guarding, Rebound Back: positive: Nml inspection Skin: positive: Other (erythema in right gluteal area) Extremities: positive: Non-tender, Full ROM, Nml appearance, No pedal edema Neurologic/Psychiatric: positive: Oriented x3 Conclusion/Plan - Problem List (1) Cellulitis, gluteal, right Conclusion/Plan: Patient's white blood cell count was 24. Cultures drawn. Patient started on vancomycin and clindamycin. Will continue. Tylenol for fever. Pain management. IV hydration with normal saline at 125 mils per hour. (2) Diabetes mellitus Conclusion/Plan: Patient's metformin held. Low-dose sliding scale insulin ordered. Accu-Cheks q. before meals and at bedtime. Qualifiers: Diabetes mellitus type: type 2 (3) Hypothyroidism Conclusion/Plan: Synthroid 75 mcg every morning ordered. - Lab Results Fish Bones: 01/18/20 05:04 01/18/20 05:04 Core Measures - Anticipated LOS I expect patient to be DC'd or transferred within 96 hours.: Yes - DVT/VTE - Prophylaxis VTE/DVT Device ordered at admit?: Yes VTE/DVT Prophylaxis med ordered at admit?: Yes
[2020-01-16] MEDS ORDERED: VANCOMYCIN INJ 1 GM in SODIUM CHLORIDE 0.9% 250 ML IV SCH ×2 (23:00→23:14)
[2020-01-17] MEDS: oxyCODONE 5 MG TABLET PO PRN ×2 (00:17→10:41)
[2020-01-17] MEDS: SODIUM CHLORIDE 0.9% 1,000 ML IV SCH ×2 (00:17→10:42)
[2020-01-17] MEDS: SODIUM CHLORIDE FLUSH 0.9% 10 ML SYRINGE IVP SCH ×4 (00:20→16:54)
[2020-01-17] MEDS: CLINDAMYCIN 600 MG/50 ML 50 ML IV SCH ×2 (00:22→06:00)
[2020-01-17] MEDS: ACETAMINOPHEN 325 MG TABLET PO PRN ×2 (01:28→21:53)
[2020-01-17 04:52] LABS: BASOPHILS % (AUTO) 0.4 %; EOSINOPHILS % (AUTO) 1.2 %; HGB - HEMOGLOBIN 11.9 g/dL (12.0-16.0); LYMPHOCYTES % (AUTO) 10.1 %; MEAN CORPUSCULAR HEMOGLOBIN 32.2 pg (27.0-31.0); MEAN CORPUSCULAR HGB CONC 33.5 g/dL (32.0-36.0); MEAN CORPUSCULAR VOLUME 95.9 fL (81.0-99.0); MEAN PLATELET VOLUME 9.2 fL (7.9-10.8); MONOCYTES % (AUTO) 7.8 %; NEUTROPHILS % (AUTO) 79.4 %; PLT - PLATELET COUNT 210 10^3/uL (130-450); RED CELL DISTRIBUTION WIDTH 12.7 % (12.0-15.0); WHITE BLOOD COUNT 22.2 x10^3/uL (4.8-10.8)
[2020-01-17 04:56] LABS: ABNORMAL LYMPHS % (MANUAL) 0 %
[2020-01-17 05:03] LABS: CREATININE 0.5 mg/dL (0.4-1.0)
[2020-01-17 05:35] LABS: BAND NEUTROPHILS % (MANUAL) 3 %; DIFFERENTIAL COMMENT MANUAL DIFFERENTIAL; EOSINOPHILS # (MANUAL) 0.4 10^3/uL (0-0.7); LYMPHOCYTES # (MANUAL) 4.4 10^3/uL (1.5-3.5); LYMPHOCYTES % (MANUAL) 20 %; MONOCYTES # (MANUAL) 2.4 10^3/uL (0.0-1.0); PLATELET ESTIMATE, MANUAL NORMAL (130-450,000) (NORMAL); RBC MORPHOLOGY (MULTIPLE) NORMAL APPEARANCE (NORMAL)
[2020-01-17] MEDS: LEVOTHYROXINE 75 MCG TABLET PO SCH (06:00)
[2020-01-17] MEDS: PANTOPRAZOLE 40 MG TABLET PO SCH (06:00)
[2020-01-17] MEDS: LIDOCAINE PATCH 5% TOP PRN (06:05)
[2020-01-17] MEDS: INSULIN ASPART 300 UNIT/3 ML PEN SUBQ SCH ×4 (07:52→21:53)
--- NOTE | 2020-01-17 08:04 | CT Report ---
PROCEDURE: PELVIS W INDICATIONS: right gluteal abscess CONTRAST: IV CONTRAST: Optiray 320 ml: 100 PO CONTRAST: *NO PO CONTRAST TECHNIQUE: After the administration of intravenous contrast, 5 mm thick sections acquired from the iliac crests to the symphysis. 5 mm thick coronal and sagittal reformats were acquired. For radiation dose reduc tion, the following was used: automated exposure control, adjustment of mA and/or kV according to pa tient size. COMPARISON: CT abdomen pelvis 03/06/2018 FINDINGS: Image quality: Excellent. Peritoneum and bowel: Contrast enhanced bowel loops demonstrate normal wall thickness and caliber. No free fluid or air. Genitourinary: Bladder wall thickness is normal. Nodes and vessels: No iliac, pelvic, or inguinal adenopathy. Iliac vessels demonstrate normal size and enhancement. Bones: No suspicious bony lesions. Miscellaneous: No inguinal hernias. There is stranding within the subcutaneous fat of the right glu teal region. No focal fluid collection is identified. IMPRESSION: 1. Gluteal soft tissue stranding and edema suggestive of cellulitis. No visualized abscess. The above findings are concordant with preliminary report. Reviewed by: Sylvie Talavera MD on 01/17/2020 8:02 AM PDT Approved by: Sylvie Talavera MD on 01/17/2020 8:02 AM PDT Station ID: [id number]
[2020-01-17] MEDS: NICOTINE 14 MG PATCH TOP SCH (08:42)
[2020-01-17] MEDS: SACCHAROMYCES BOULARDII 250 MG CAPSULE PO SCH ×2 (08:42→16:54)
[2020-01-17] MEDS: ethyl alcohoL 62% SWAB AMPULE NAS SCH ×2 (08:43→21:45)
[2020-01-17] MEDS: ENOXAPARIN 40 MG/0.4 ML SYRINGE SUBQ SCH (08:43)
[2020-01-17] MEDS ORDERED: DULoxetine 30 MG CAPSULE PO SCH (09:00)
[2020-01-17] MEDS ORDERED: VANCOMYCIN INJ 2 GM in SODIUM CHLORIDE 0.9% 500 ML IV SCH (09:00)
[2020-01-17] MEDS ORDERED: MORPHINE 2 MG/ML CARPUJECT IVP PRN (09:02)
[2020-01-17 09:16] LABS: ABSOLUTE RETICS # AUTO 0.043 10^6/uL (0.020-0.110); RED BLOOD COUNT 3.66 10^6/uL (4.20-5.40)
[2020-01-17] MEDS: ALBUTEROL NEB 2.5 MG/3 ML INH PRN (09:34)
[2020-01-17 09:36] LABS: % IRON SATURATION 6 % (20-50); IRON 10 ug/dL (28-170); TOTAL IRON BINDING CAPACITY 171 ug/dL (250-450); TRANSFERRIN 122 mg/dL (192-382)
[2020-01-17 09:46] LABS: FERRITIN 172.2 ng/mL (11.0-306.8)
[2020-01-17] MEDS ORDERED: DULoxetine 30 MG CAPSULE PO ONE (10:00)
[2020-01-17] MEDS ORDERED: cefTRIAXone 2 GM in SODIUM CHLORIDE 0.9% MINIBAG 100 ML IV SCH (11:00)
--- NOTE | 2020-01-17 11:12 | PHARMACY PROGRESS NOTE ---
- Best Possible Medication History Admit Date and Time: 01/16/20 223 Processed by: Pharmacy Medication History completed: Yes Patient Interview: Completed Secondary Source(s): Prescription bottles, Pharmacy records, Insurance records As the person ultimately responsible for medication therapy, providers are able to order a medication from an existing home medication list in [facility] via the "Reconcile Routine" prior to Confirmation of that medication by ground support equipment assembler. Such practice is discouraged except when the physician, in their clinical judgment, deems that a medical need exists for a medication without regard to previous use. PATIENT INTERVIEWED BY [employer]. PATIENT ABLE TO CONFIRM HOME MEDICATIONS. PATIENT ALSO BROUGHT IN MEDICATION BOTTLES.
--- NOTE | 2020-01-17 12:10 | Ultrasound Report ---
PROCEDURE: Pelvic Limited or F/U INDICATIONS: right buttock infection,tender,if abscess TECHNIQUE: Real-time transabdominal scanning was performed of the pelvic organs, with image documentation. COMPARISON: None. FINDINGS: Extensive, soft tissue edema noted in the right buttock. No discrete fluid collections are identified that would be compatible with abscess. IMPRESSION: 1. No abscess. 2. Diffuse, right buttock soft tissue edema compatible with reported cellulitis. Reviewed by: Vesna Shetty MD, PhD on 01/17/2020 12:09 PM PDT Approved by: Vesna Shetty MD, PhD on 01/17/2020 12:09 PM PDT Station ID: [id number]
[2020-01-17] MEDS: VANCOMYCIN INJ 1 GM, VANCOMYCIN INJ 500 MG in SODIUM CHLORIDE 0.9% 500 ML IV SCH ×2 (12:25→20:24)
[2020-01-17] MEDS: BACLOFEN 10 MG TABLET PO SCH ×4 (12:25→21:45)
[2020-01-17] MEDS ORDERED: VANCOMYCIN 1 GM VIAL ONE ×2 (12:28→20:25)
[2020-01-17 13:27] LABS: HEMOGLOBIN A1c% 5.4 % (4.27-6.07)
[2020-01-17] MEDS: GABAPENTIN 300 MG CAPSULE PO SCH ×2 (13:50→21:45)
--- NOTE | 2020-01-17 15:11 | PROVIDER PROGRESS NOTE ---
Assessment/Plan - Problem List (1) Sepsis Assessment/Plan: Patient Still has a fever, elevated WBC, patient WBC still have 22. Patient had cellulitis in the right buttock. Blood culture is pending, patient was given antibiotics vancomycin per pharmacy recommendation.We will continue intravenous IV fluids, continue pain medication. (2) Cellulitis, gluteal, right Patient cellulitis location had some tenderness.Ordered ultrasound which show patient has no abscess.We will continue with antibiotics and intravenous IV fluids and pain control. (3) Diabetes mellitus Patient A1c is 5.4, patient may hold metformin in the d/c. (4) Hypothyroidism Conclusion/Plan: We will test TSH, continue Synthroid 75 mcg every morning ordered. (5)iron deficiency anemia Patient reported she had iron deficiency anemia, she takes iron in the home, will resume iron - Current Meds Current Meds: Current Medications Generic Name Dose Route Start Last Admin Trade Name Freq PRN Reason Stop Dose Admin Acetaminophen 650 mg 01/16/20 22:38 01/17/20 01:28 Tylenol PO 650 mg Q4HR PRN Administration Pain 1 to 4 Albuterol 2.5 mg 01/17/20 08:30 01/17/20 09:34 INH 2.5 mg RTQ4H PRN Administration Wheezing Alcohol 1 amp 01/17/20 09:00 01/17/20 08:43 Nozin ISABELA 1 amp BID KENDAL Administration Baclofen 20 mg 01/17/20 10:50 01/17/20 13:52 Lioresal PO Not Given QID KENDAL Enoxaparin Sodium 40 mg 01/17/20 09:00 01/17/20 08:43 Lovenox SUBQ 40 mg DAILY KENDAL Administration Gabapentin 300 mg 01/17/20 14:00 01/17/20 13:50 Neurontin PO 300 mg TID KENDAL Administration Sodium Chloride 1,000 mls @ 125 mls/hr 01/16/20 23:00 01/17/20 10:42 Normal Saline 0.9% IV 125 mls/hr .Q8H KENDAL Administration Vancomycin HCl 1 gm/ 500 mls @ 250 mls/hr 01/17/20 12:00 01/17/20 14:25 Vancomycin HCl 500 mg/ Sodium IV Infused Chloride Q8H KENDAL Infusion Insulin Aspart 1 - 5 unit 01/17/20 08:00 01/17/20 12:29 Novolog SUBQ Not Given 0800,1200,1700,2100 [facility] Protocol Levothyroxine Sodium 75 mcg 01/17/20 07:00 01/17/20 06:00 Synthroid PO 75 mcg QDAC KENDAL Administration Lidocaine 1 patch 01/17/20 05:22 01/17/20 06:05 Lidoderm Patch TOP 1 patch DAILY PRN Administration PAIN Nicotine 1 patch 01/17/20 09:00 01/17/20 08:42 Nicoderm TOP 1 patch DAILY KENDAL Administration Oxycodone HCl 5 mg 01/16/20 22:38 01/17/20 10:41 Roxicodone PO 5 mg Q4HR PRN Administration Pain 5 to 7 Pantoprazole Sodium 40 mg 01/17/20 07:00 01/17/20 06:00 Protonix PO 40 mg QDAC KENDAL Administration Saccharomyces Boulardii 250 mg 01/17/20 08:00 01/17/20 08:42 Florastor PO 250 mg BIDWM KENDAL Administration Sodium Chloride 10 ml 01/17/20 01:00 01/17/20 12:26 Normal Saline Flush 0.9% IVP 10 ml 0100,0900,1700 [facility] Administration - Lab Result Fish Bone Diagrams: 01/17/20 04:35 01/17/20 04:35 - Additional Planning My Orders: My Active Orders 01/17/20 08:00 Saccharomyces Boulardii [Florastor] 250 mg PO BIDWM 01/17/20 08:30 Nebulizer/MDI Tx. [RC] .Q4 PRN Resp Teach Nebulizer/MDI [RC] .ONCE Albuterol 2.5 mg INH RTQ4H PRN 01/17/20 09:02 Morphine Inj (Carpuject) [Morphine (Carpuject)] 2 mg IVP Q2HR PRN 01/17/20 10:50 Baclofen [Lioresal] 20 mg PO QID 01/17/20 12:00 Vancomycin Inj [Vancomycin] 1 gm Vancomycin Inj 500 mg Sodium Chloride 0.9% [Normal Saline 0.9%] 500 ml IV Q8H 01/17/20 14:00 Gabapentin [Neurontin] 300 mg PO TID 01/18/20 05:00 TSH [THYROID STIMULATING HORMONE] [IAI] DAILYLAB 01/18/20 09:00 DULoxetine [Cymbalta] 60 mg PO DAILY Subjective - Subjective Patient Reports: Feeling Better Objective Vital Signs: Vital Signs - 24 hr 01/16/20 01/16/20 01/16/20 18:48 21:00 23:25 Temperature 37.7 C H 37.5 C 37.6 C H Heart Rate 112 H 63 78 Heart Rate [ Brachial] Respiratory 18 16 14 Rate Blood Pressure 124/64 102/62 98/60 Blood Pressure [Right Brachial artery] O2 Saturation 97 98 98 01/17/20 01/17/20 01/17/20 00:05 04:40 07:52 Temperature 37 C 37.2 C 37.9 C H Heart Rate Heart Rate [ 91 82 100 Brachial] Respiratory 18 16 18 Rate Blood Pressure Blood Pressure 117/66 103/51 L 103/51 L [Right Brachial artery] O2 Saturation 98 96 96 01/17/20 01/17/20 09:34 13:16 Temperature 37.9 C H Heart Rate 90 95 Heart Rate [ Brachial] Respiratory 16 18 Rate Blood Pressure Blood Pressure [Right Brachial artery] O2 Saturation 96 Oxygen O2 Source Room air I&O (Last 24 Hrs): Intake and Output Totals x24h 01/15/20 01/16/20 01/17/20 23:59 23:59 23:59 Intake Total 1050 3053.333 Balance 1050 3053.333 General: Alert, Oriented x3, Mild distress, Other (mild to moderate erythema, swelling, with tenderness on right buttock) HEENT: Atraumatic Neck: Supple Lymphatic: no adenopathy Neuro: Alert, Non Focal, Oriented Times 3 Cardiovascular: Regular rate, Normal S1, Normal S2 Respiratory: Chest non-tender, No respiratory distress Abdomen: Normal bowel sounds, Soft, No tenderness - Results Results: Laboratory Results WBC 22.2 x10^3/uL (4.8-10.8) H 01/17/20 04:35 RBC 3.66 10^6/uL (4.20-5.40) L 01/17/20 04:35 RBC 3.70 10^6/uL (4.20-5.40) L 01/17/20 04:35 Hgb 11.9 g/dL (12.0-16.0) L 01/17/20 04:35 Hct 35.5 % (37.0-47.0) L 01/17/20 04:35 MCV 95.9 fL (81.0-99.0) 01/17/20 04:35 MCH 32.2 pg (27.0-31.0) H 01/17/20 04:35 MCHC 33.5 g/dL (32.0-36.0) 01/17/20 04:35 RDW 12.7 % (12.0-15.0) 01/17/20 04:35 Plt Count 210 10^3/uL (130-450) 01/17/20 04:35 MPV 9.2 fL (7.9-10.8) 01/17/20 04:35 Reticulocyte % (Auto) 1.16 % (0.5-2.3) 01/17/20 04:35 Neut # (Auto) Not Reportable 01/17/20 04:35 Lymph # (Auto) Not Reportable 01/17/20 04:35 [place] # (Auto) Not Reportable 01/17/20 04:35 Eos # (Auto) Not Reportable 01/17/20 04:35 Baso # (Auto) Not Reportable 01/17/20 04:35 Absolute Nucleated RBC Not Reportable 01/17/20 04:35 Total Counted 100 01/17/20 04:35 Band Neuts % (Manual) 3 % (0-10) 01/17/20 04:35 Abnorm Lymph % (Manual) 0 % 01/17/20 04:35 Nucleated RBC % Not Reportable 01/17/20 04:35 Neutrophils # (Manual) 14.9 10^3/uL (1.5-6.6) H 01/17/20 04:35 Lymphocytes # (Manual) 4.4 10^3/uL (1.5-3.5) H 01/17/20 04:35 Monocytes # (Manual) 2.4 10^3/uL (0.0-1.0) H 01/17/20 04:35 Eosinophils # (Manual) 0.4 10^3/uL (0-0.7) 01/17/20 04:35 Basophils # (Manual) 0.0 10^3/uL (0-0.1) 01/17/20 04:35 Differential Comment MANUAL DIFFERENTIAL 01/17/20 04:35 Platelet Estimate NORMAL (130-450,000) (NORMAL) 01/17/20 04:35 RBC Morph Micro Appear NORMAL APPEARANCE (NORMAL) 01/17/20 04:35 Absolute Retic 0.043 10^6/uL (0.020-0.110) 01/17/20 04:35 PT 16.2 secs (9.9-12.6) H 01/16/20 20:28 INR 1.5 (0.8-1.2) H 01/16/20 20:28 APTT 31.7 secs (24.9-33.3) 01/16/20 20:28 Sodium 135 mmol/L (135-145) 01/17/20 04:35 Potassium 3.5 mmol/L (3.5-5.0) 01/17/20 04:35 Chloride 103 mmol/L (101-111) 01/17/20 04:35 Carbon Dioxide 25 mmol/L (21-32) 01/17/20 04:35 Anion Gap 7.0 (6-13) 01/17/20 04:35 BUN 8 mg/dL (6-20) 01/17/20 04:35 Creatinine 0.5 mg/dL (0.4-1.0) 01/17/20 04:35 Estimated GFR (MDRD) 134 (>89) 01/17/20 04:35 Glucose 106 mg/dL (70-100) H 01/17/20 04:35 POC Whole Bld Glucose 134 mg/dL (70 - 100) H 01/17/20 11:53 Estimat Average Glucose 108 mg/dL (70-100) H 01/17/20 04:35 Hemoglobin A1c % 5.4 % (4.27-6.07) 01/17/20 04:35 Lactic Acid 0.7 mmol/L (0.5-2.2) 01/16/20 20:28 Calcium 8.0 mg/dL (8.5-10.3) L 01/17/20 04:35 Iron 10 ug/dL (28-170) L 01/17/20 04:35 TIBC 171 ug/dL (250-450) L 01/17/20 04:35 % Saturation 6 % (20-50) L 01/17/20 04:35 Transferrin 122 mg/dL (192-382) L 01/17/20 04:35 Ferritin 172.2 ng/mL (11.0-306.8) 01/17/20 04:35 Total Bilirubin 0.5 mg/dL (0.2-1.0) 01/16/20 20:28 AST 15 IU/L (10-42) 01/16/20 20:28 ALT 14 IU/L (10-60) 01/16/20 20:28 Alkaline Phosphatase 53 IU/L (42-121) 01/16/20 20:28 Lactate Dehydrogenase 121 IU/L (91-225) 01/17/20 09:45 Total Creatine Kinase 67 IU/L (22-269) 01/16/20 20:28 Total Protein 6.3 g/dL (6.7-8.2) L 01/16/20 20:28 Albumin 2.9 g/dL (3.2-5.5) L 01/16/20 20:28 Globulin 3.4 g/dL (2.1-4.2) 01/16/20 20:28 Albumin/Globulin Ratio 0.9 (1.0-2.2) L 01/16/20 20:28 Lipase 23 U/L (22-51) 01/16/20 20:28 Vitamin B12 1143 pg/mL (180-914) H 01/17/20 04:35 Urine Color YELLOW 01/16/20 20:15 Urine Clarity CLEAR (CLEAR) 01/16/20 20:15 Urine pH 7.0 PH (5.0-7.5) 01/16/20 20:15 Ur Specific [place] 1.010 (1.002-1.030) 01/16/20 20:15 Urine Protein NEGATIVE mg/dL (NEGATIVE) 01/16/20 20:15 Urine Glucose (UA) NEGATIVE mg/dL (NEGATIVE) 01/16/20 20:15 Urine Ketones NEGATIVE mg/dL (NEGATIVE) 01/16/20 20:15 Urine Occult Blood NEGATIVE (NEGATIVE) 01/16/20 20:15 Urine Nitrite NEGATIVE (NEGATIVE) 01/16/20 20:15 Urine Bilirubin NEGATIVE (NEGATIVE) 01/16/20 20:15 Urine Urobilinogen 0.2 (NORMAL) E.U./dL (NORMAL) 01/16/20 20:15 Ur Leukocyte Esterase NEGATIVE (NEGATIVE) 01/16/20 20:15 Ur Microscopic Review NOT INDICATED 01/16/20 20:15 Urine Culture Comments NOT INDICATED 01/16/20 20:15 Urine HCG, Qual NEGATIVE 01/16/20 20:15 Nasal Screen MRSA (PCR) NEGATIVE (NEGATIVE) 01/16/20 23:35 Urine Opiates Screen NEGATIVE (NEGATIVE) 01/16/20 20:15 Ur Oxycodone Screen NEGATIVE (NEGATIVE) 01/16/20 20:15 Urine Methadone Screen NEGATIVE (NEGATIVE) 01/16/20 20:15 Ur Propoxyphene Screen NEGATIVE (NEGATIVE) 01/16/20 20:15 Ur Barbiturates Screen NEGATIVE (NEGATIVE) 01/16/20 20:15 Ur Tricyclics Screen NEGATIVE (NEGATIVE) 01/16/20 20:15 Ur Phencyclidine Scrn NEGATIVE (NEGATIVE) 01/16/20 20:15 Ur Amphetamine Screen NEGATIVE (NEGATIVE) 01/16/20 20:15 U Methamphetamines Scrn NEGATIVE (NEGATIVE) 01/16/20 20:15 U Benzodiazepines Scrn NEGATIVE (NEGATIVE) 01/16/20 20:15 Urine Cocaine Screen NEGATIVE (NEGATIVE) 01/16/20 20:15 U Cannabinoids Screen POSITIVE (NEGATIVE) H 01/16/20 20:15 Ethyl Alcohol < 5.0 mg/dL 01/16/20 20:28 - Procedures Procedures: Procedures OTHER LOCAL DESTRUC SKIN (08/19/12) Sepsis Event Note (H) - Evaluation Current Stage of Sepsis: Sepsis Possible source of Sepsis: positive: Skin/soft tissue - Sepsis Criteria Sepsis Criteria: Recorded Temperature greater than 38.3C or Less than 36C, Recorded Heart Rate greater than 90 bpm, WBC count greater than 12,000 or less than 4000 ABX Reporting Has patient been on IV antibiotics over the past 48 hours?: Yes Current Medications - Current Medications Current Medications: Active Medications Acetaminophen (Tylenol) 650 mg PO Q4HR PRN PRN Reason: Pain 1 to 4 Last Admin: 01/17/20 01:28 Dose: 650 mg Documented by: Albuterol () 2.5 mg INH RTQ4H PRN PRN Reason: Wheezing Last Admin: 01/17/20 09:34 Dose: 2.5 mg Documented by: Alcohol (Nozin) 1 amp ISABELA BID [facility] Last Admin: 01/17/20 08:43 Dose: 1 amp Documented by: Baclofen (Lioresal) 20 mg PO QID [facility] Last Admin: 01/17/20 13:52 Dose: Not Given Documented by: Duloxetine HCl (Cymbalta) 60 mg PO DAILY [facility] Enoxaparin Sodium (Lovenox) 40 mg SUBQ DAILY [facility] Last Admin: 01/17/20 08:43 Dose: 40 mg Documented by: Ferrous Sulfate (Feosol) 325 mg PO DAILYWM [facility] Gabapentin (Neurontin) 300 mg PO TID [facility] Last Admin: 01/17/20 13:50 Dose: 300 mg Documented by: Sodium Chloride (Normal Saline 0.9%) 1,000 mls @ 125 mls/hr IV .Q8H [facility] Last Admin: 01/17/20 10:42 Dose: 125 mls/hr Documented by: Vancomycin HCl 1 gm/Vancomycin HCl 500 mg/ Sodium Chloride 500 mls @ 250 mls/hr IV Q8H [facility] Last Infusion: 01/17/20 14:25 Dose: Infused Documented by: Insulin Aspart (Novolog) 1 - 5 unit SUBQ 0800,1200,1700,2100 [facility]; Protocol Last Admin: 01/17/20 12:29 Dose: Not Given Documented by: Levothyroxine Sodium (Synthroid) 75 mcg PO QDAC [facility] Last Admin: 01/17/20 06:00 Dose: 75 mcg Documented by: Lidocaine (Lidoderm Patch) 1 patch TOP DAILY PRN PRN Reason: PAIN Last Admin: 01/17/20 06:05 Dose: 1 patch Documented by: Morphine Sulfate (Morphine (Carpuject)) 2 mg IVP Q2HR PRN PRN Reason: PAIN Nicotine (Nicoderm) 1 patch TOP DAILY [facility] Last Admin: 01/17/20 08:42 Dose: 1 patch Documented by: Ondansetron HCl (Zofran Inj) 4 mg IVP Q6HR PRN PRN Reason: Nausea / Vomiting Oxycodone HCl (Roxicodone) 5 mg PO Q4HR PRN PRN Reason: Pain 5 to 7 Last Admin: 01/17/20 10:41 Dose: 5 mg Documented by: Pantoprazole Sodium (Protonix) 40 mg PO QDAC [facility] Last Admin: 01/17/20 06:00 Dose: 40 mg Documented by: Saccharomyces Boulardii (Florastor) 250 mg PO BIDWM [facility] Last Admin: 01/17/20 08:42 Dose: 250 mg Documented by: Sodium Chloride (Normal Saline Flush 0.9%) 10 ml IVP PRN PRN PRN Reason: NEEDED PER PROVIDER ORDERS Sodium Chloride (Normal Saline Flush 0.9%) 10 ml IVP 0100,0900,1700 KENDAL Last Admin: 01/17/20 12:26 Dose: 10 ml Documented by: Albuterol [Proventil Hfa] 1 puffs INH Q4HR PRN 08/18/12 Baclofen 20 mg PO QID 08/18/12 DULoxetine [Cymbalta] 60 mg PO DAILY 08/18/12 Gabapentin 300 - 600 mg PO QPM@2200 01/17/20 Gabapentin [Neurontin] 300 mg PO BID@1000,1600 01/17/20 Levothyroxine [Synthroid] 75 mcg PO QDAC 01/17/20 Metformin HCl [Glucophage] 850 mg PO BID 01/17/20
[2020-01-17] MEDS ORDERED: HYDROmorphone 0.5 MG/0.5 ML SYRINGE IVP PRN (15:51)
[2020-01-17] MEDS: FERROUS SULFATE 325 MG TABLET PO SCH (16:54)
[2020-01-17] MEDS: cefTRIAXone 2 GM in SODIUM CHLORIDE 0.9% MINIBAG 100 ML IV SCH (17:08)
--- NOTE | 2020-01-17 17:49 | PHARMACY PROGRESS NOTE ---
- Therapy Status Vancomycin regimen day #: 1 Therapy status: Awaiting steady state Basis for treatment: Empirical Treatment indication: 01/16 VANCOMYCIN INITIATED: CELLULITIS, MRSA PCR NEG, MRSA IN PAST + NEC FASC 2G LOADING DOSE X1 ED MAINTENANCE DOSE: 1500 Q8H T1/2: 6.19H CRCL (ABW): 152.6 ML/MIN, SCR: 0.5MG/DL TROUGH SCHEDULED FOR 01/17: @ 1100 (BEFORE 5TH DOSE) Trough goal: 15-20 Concurrent antibiotics: ROCEPHIN 2G - SKYE Risk Risk level for Acute Kidney Injury: Moderate Acute Kidney Injury risk factors: Goal trough >15 - Monitoring and Recommendation Clinical response to treatment: I&O Previous 24 hours 01/15/20 01/16/20 01/17/20 23:59 23:59 23:59 Intake Total 1050 3153.333 Balance 1050 3153.333 Lab Results 01/17/20 01/16/20 04:35 20:28 BUN 8 8 Creatinine 0.5 0.5 Estimated GFR (MDRD) 134 134 Monitoring plan: Daily serum creatinine
[2020-01-17] MEDS ORDERED: SODIUM CHLORIDE 0.9% 0 ML IV ONE (20:25)
[2020-01-17] MEDS ORDERED: VANCOMYCIN 500 MG VIAL ONE (20:25)
[2020-01-18] MEDS: SODIUM CHLORIDE 0.9% 1,000 ML IV SCH ×2 (00:56→16:25)
[2020-01-18] MEDS: VANCOMYCIN INJ 1 GM, VANCOMYCIN INJ 500 MG in SODIUM CHLORIDE 0.9% 500 ML IV SCH ×3 (03:32→20:28)
[2020-01-18] MEDS ORDERED: VANCOMYCIN 1 GM VIAL ONE (03:35)
[2020-01-18 05:18] LABS: BASOPHILS # (AUTO) 0.1 10^3/uL (0.0-0.1); BASOPHILS % (AUTO) 0.5 %; EOSINOPHILS # (AUTO) 0.3 10^3/uL (0.0-0.7); EOSINOPHILS % (AUTO) 1.9 %; HGB - HEMOGLOBIN 11.5 g/dL (12.0-16.0); LYMPHOCYTES # (AUTO) 1.8 10^3/uL (1.5-3.5); LYMPHOCYTES % (AUTO) 11.8 %; MEAN CORPUSCULAR HEMOGLOBIN 31.6 pg (27.0-31.0); MEAN CORPUSCULAR HGB CONC 32.4 g/dL (32.0-36.0); MEAN CORPUSCULAR VOLUME 97.5 fL (81.0-99.0); MEAN PLATELET VOLUME 8.9 fL (7.9-10.8); MONOCYTES # (AUTO) 1.1 10^3/uL (0.0-1.0); MONOCYTES % (AUTO) 6.9 %; NEUTROPHILS % (AUTO) 78.1 %; PLT - PLATELET COUNT 220 10^3/uL (130-450); RED BLOOD COUNT 3.64 10^6/uL (4.20-5.40); RED CELL DISTRIBUTION WIDTH 12.9 % (12.0-15.0); WHITE BLOOD COUNT 15.4 x10^3/uL (4.8-10.8)
[2020-01-18 05:28] LABS: CALCIUM 7.9 mg/dL (8.5-10.3); CREATININE 0.4 mg/dL (0.4-1.0)
[2020-01-18] MEDS: PANTOPRAZOLE 40 MG TABLET PO SCH (06:02)
[2020-01-18] MEDS: GABAPENTIN 300 MG CAPSULE PO SCH ×3 (06:02→21:42)
[2020-01-18] MEDS: LEVOTHYROXINE 75 MCG TABLET PO SCH (06:02)
[2020-01-18] MEDS: SACCHAROMYCES BOULARDII 250 MG CAPSULE PO SCH ×2 (08:46→16:31)
[2020-01-18] MEDS: DULoxetine 30 MG CAPSULE PO SCH (08:46)
[2020-01-18] MEDS: FERROUS SULFATE 325 MG TABLET PO SCH (08:46)
[2020-01-18] MEDS: ACETAMINOPHEN 325 MG TABLET PO PRN ×2 (08:46→15:01)
[2020-01-18] MEDS: NICOTINE 14 MG PATCH TOP SCH (08:47)
[2020-01-18] MEDS: ENOXAPARIN 40 MG/0.4 ML SYRINGE SUBQ SCH (08:47)
[2020-01-18] MEDS: ethyl alcohoL 62% SWAB AMPULE NAS SCH ×2 (08:47→21:42)
[2020-01-18] MEDS: polyethylene glycoL 3350 17 GM PACKET PO SCH (08:48)
[2020-01-18] MEDS: cefTRIAXone 2 GM in SODIUM CHLORIDE 0.9% MINIBAG 100 ML IV SCH (08:48)
[2020-01-18] MEDS: SODIUM CHLORIDE FLUSH 0.9% 10 ML SYRINGE IVP SCH ×2 (08:48→16:31)
[2020-01-18] MEDS: BACLOFEN 10 MG TABLET PO SCH ×4 (10:16→21:42)
[2020-01-18 11:11] LABS: VANCOMYCIN,TROUGH 15.1 ug/mL (10.0-20.0)
[2020-01-18] MEDS: INSULIN ASPART 300 UNIT/3 ML PEN SUBQ SCH ×4 (13:57→20:40)
--- NOTE | 2020-01-18 17:10 | PROVIDER PROGRESS NOTE ---
Assessment/Plan - Problem List (1) Sepsis Assessment/Plan: 108,Patient Reported she feel better. Patient has no more fever and her WBC is trending down, Blood culture is negative. Continue antibiotics Rocephin and vancomycin, Continue pain control Patient Still has a fever, elevated WBC, patient WBC still have 22. Patient had cellulitis in the right buttock. Blood culture is pending, patient was given antibiotics vancomycin per pharmacy recommendation.We will continue intravenous IV fluids, continue pain medication. (2) Cellulitis, gluteal, right 108, Patient reported she feel better and improved, Reduced tenderness, and erythema. Continue with antibiotics, Continue pain control Patient cellulitis location had some tenderness.Ordered ultrasound which show patient has no abscess.We will continue with antibiotics and intravenous IV fluids and pain control. (3) Diabetes mellitus Patient A1c is 5.4, patient may hold metformin in the d/c. (4) Hypothyroidism Conclusion/Plan: TSH is normal, continue Synthroid 75 mcg every morning ordered. (5)iron deficiency anemia Patient reported she had iron deficiency anemia, she takes iron in the home, will resume iron - Current Meds Current Meds: Current Medications Generic Name Dose Route Start Last Admin Trade Name Freq PRN Reason Stop Dose Admin Acetaminophen 650 mg 01/16/20 22:38 01/18/20 15:01 Tylenol PO 650 mg Q4HR PRN Administration Pain 1 to 4 Albuterol 2.5 mg 01/17/20 08:30 01/17/20 09:34 INH 2.5 mg RTQ4H PRN Administration Wheezing Alcohol 1 amp 01/17/20 09:00 01/18/20 08:47 Nozin ISABELA 1 amp BID KENDAL Administration Baclofen 20 mg 01/17/20 10:50 01/18/20 16:31 Lioresal PO 20 mg QID KENDAL Administration Duloxetine HCl 60 mg 01/18/20 09:00 01/18/20 08:46 Cymbalta PO 60 mg DAILY KENDAL Administration Enoxaparin Sodium 40 mg 01/17/20 09:00 01/18/20 08:47 Lovenox SUBQ 40 mg DAILY KENDAL Administration Ferrous Sulfate 325 mg 01/17/20 16:00 01/18/20 08:46 Feosol PO 325 mg DAILYWM KENDAL Administration Gabapentin 300 mg 01/17/20 14:00 01/18/20 15:01 Neurontin PO 300 mg TID KENDAL Administration Sodium Chloride 1,000 mls @ 125 mls/hr 01/16/20 23:00 01/18/20 16:25 Normal Saline 0.9% IV 125 mls/hr .Q8H KENDAL Administration Vancomycin HCl 1 gm/ 500 mls @ 250 mls/hr 01/17/20 12:00 01/18/20 14:50 Vancomycin HCl 500 mg/ Sodium IV Infused Chloride Q8H KENDAL Infusion Ceftriaxone Sodium 2 gm/ 100 mls @ 200 mls/hr 01/17/20 16:24 01/18/20 09:18 Sodium Chloride IV Infused DAILY KENDAL Infusion Insulin Aspart 1 - 5 unit 01/17/20 08:00 01/18/20 16:56 Novolog SUBQ Not Given 0800,1200,1700,2100 [facility] Protocol Levothyroxine Sodium 75 mcg 01/17/20 07:00 01/18/20 06:02 Synthroid PO 75 mcg QDAC KENDAL Administration Lidocaine 1 patch 01/17/20 05:22 01/17/20 06:05 Lidoderm Patch TOP 1 patch DAILY PRN Administration PAIN Nicotine 1 patch 01/17/20 09:00 01/18/20 08:47 Nicoderm TOP 1 patch DAILY KENDAL Administration Polyethylene Glycol 17 gm 01/18/20 09:00 01/18/20 08:48 Miralax PO 17 gm DAILY KENDAL Administration Saccharomyces Boulardii 250 mg 01/17/20 08:00 01/18/20 16:31 Florastor PO 250 mg BIDWM KENDAL Administration Sodium Chloride 10 ml 01/17/20 01:00 01/18/20 16:31 Normal Saline Flush 0.9% IVP Not Given 0100,0900,1700 [facility] - Lab Result Fish Bone Diagrams: 01/18/20 05:04 01/18/20 05:04 - Additional Planning My Orders: My Active Orders 01/17/20 16:24 cefTRIAXone [Rocephin] 2 gm Sodium Chloride 0.9% Minibag [Normal Saline 0.9% Minibag] 100 ml IV DAILY 01/18/20 09:00 DULoxetine [Cymbalta] 60 mg PO DAILY polyethylene glycoL 3350 [Miralax] 17 gm PO DAILY 01/19/20 05:00 CRP - C-REACTIVE PROTEIN [CHEM] DAILYLAB 01/19/20 09:00 Famotidine [Pepcid] 20 mg PO DAILY 01/20/20 05:00 CRP - C-REACTIVE PROTEIN [CHEM] DAILYLAB 01/21/20 05:00 CRP - C-REACTIVE PROTEIN [CHEM] DAILYLAB 01/22/20 05:00 CRP - C-REACTIVE PROTEIN [CHEM] DAILYLAB 01/23/20 05:00 CRP - C-REACTIVE PROTEIN [CHEM] DAILYLAB Subjective - Subjective Patient Reports: Feeling Better Objective Vital Signs: Vital Signs - 24 hr 01/17/20 01/18/20 01/18/20 23:50 03:32 07:43 Temperature 36.9 C 37.1 C 36.9 C Heart Rate [ 73 85 Brachial] Respiratory 16 16 Rate Blood Pressure 109/56 L [Left Brachial artery] Blood Pressure 103/58 L [Right Brachial artery] O2 Saturation 94 94 01/18/20 01/18/20 12:10 15:52 Temperature 37.0 C Heart Rate [ 86 71 Brachial] Respiratory 18 Rate Blood Pressure 105/51 L [Left Brachial artery] Blood Pressure 123/71 [Right Brachial artery] O2 Saturation 96 97 Oxygen O2 Source Room air I&O (Last 24 Hrs): Intake and Output Totals x24h 01/16/20 01/17/20 01/18/20 23:59 23:59 23:59 Intake Total 1050 5653.333 3440 Balance 1050 5653.333 3440 General: Alert, Oriented x3, No acute distress HEENT: Atraumatic Neck: Supple Lymphatic: no adenopathy Neuro: Alert, Non Focal, Oriented Times 3 Cardiovascular: Regular rate, Normal S1, Normal S2 Respiratory: Chest non-tender, No respiratory distress, Breath sounds nml Abdomen: Normal bowel sounds, Soft, No tenderness Extremities: Normal pulses Comments/Notes: right buttock erythema, tenderness are reduced - Results Results: Laboratory Results WBC 15.4 x10^3/uL (4.8-10.8) H 01/18/20 05:04 RBC 3.64 10^6/uL (4.20-5.40) L 01/18/20 05:04 Hgb 11.5 g/dL (12.0-16.0) L 01/18/20 05:04 Hct 35.5 % (37.0-47.0) L 01/18/20 05:04 MCV 97.5 fL (81.0-99.0) 01/18/20 05:04 MCH 31.6 pg (27.0-31.0) H 01/18/20 05:04 MCHC 32.4 g/dL (32.0-36.0) 01/18/20 05:04 RDW 12.9 % (12.0-15.0) 01/18/20 05:04 Plt Count 220 10^3/uL (130-450) 01/18/20 05:04 MPV 8.9 fL (7.9-10.8) 01/18/20 05:04 Reticulocyte % (Auto) 1.16 % (0.5-2.3) 01/17/20 04:35 Neut # (Auto) 12.0 10^3/uL (1.5-6.6) H 01/18/20 05:04 Lymph # (Auto) 1.8 10^3/uL (1.5-3.5) 01/18/20 05:04 Major # (Auto) 1.1 10^3/uL (0.0-1.0) H 01/18/20 05:04 Eos # (Auto) 0.3 10^3/uL (0.0-0.7) 01/18/20 05:04 Baso # (Auto) 0.1 10^3/uL (0.0-0.1) 01/18/20 05:04 Absolute Nucleated RBC 0.00 x10^3/uL 01/18/20 05:04 Total Counted 100 01/17/20 04:35 Band Neuts % (Manual) 3 % (0-10) 01/17/20 04:35 Abnorm Lymph % (Manual) 0 % 01/17/20 04:35 Nucleated RBC % 0.0 /100WBC 01/18/20 05:04 Neutrophils # (Manual) 14.9 10^3/uL (1.5-6.6) H 01/17/20 04:35 Lymphocytes # (Manual) 4.4 10^3/uL (1.5-3.5) H 01/17/20 04:35 Monocytes # (Manual) 2.4 10^3/uL (0.0-1.0) H 01/17/20 04:35 Eosinophils # (Manual) 0.4 10^3/uL (0-0.7) 01/17/20 04:35 Basophils # (Manual) 0.0 10^3/uL (0-0.1) 01/17/20 04:35 Differential Comment MANUAL DIFFERENTIAL 01/17/20 04:35 Platelet Estimate NORMAL (130-450,000) (NORMAL) 01/17/20 04:35 RBC Morph Micro Appear NORMAL APPEARANCE (NORMAL) 01/17/20 04:35 Absolute Retic 0.043 10^6/uL (0.020-0.110) 01/17/20 04:35 PT 16.2 secs (9.9-12.6) H 01/16/20 20:28 INR 1.5 (0.8-1.2) H 01/16/20 20:28 APTT 31.7 secs (24.9-33.3) 01/16/20 20:28 Sodium 140 mmol/L (135-145) 01/18/20 05:04 Potassium 4.2 mmol/L (3.5-5.0) 01/18/20 05:04 Chloride 109 mmol/L (101-111) 01/18/20 05:04 Carbon Dioxide 24 mmol/L (21-32) 01/18/20 05:04 Anion Gap 7.0 (6-13) 01/18/20 05:04 BUN 6 mg/dL (6-20) 01/18/20 05:04 Creatinine 0.4 mg/dL (0.4-1.0) 01/18/20 05:04 Estimated GFR (MDRD) 173 (>89) 01/18/20 05:04 Glucose 126 mg/dL (70-100) H 01/18/20 05:04 POC Whole Bld Glucose 124 mg/dL (70 - 100) H 01/18/20 16:49 Estimat Average Glucose 108 mg/dL (70-100) H 01/17/20 04:35 Hemoglobin A1c % 5.4 % (4.27-6.07) 01/17/20 04:35 Lactic Acid 0.6 mmol/L (0.5-2.2) 01/17/20 17:04 Calcium 7.9 mg/dL (8.5-10.3) L 01/18/20 05:04 Iron 10 ug/dL (28-170) L 01/17/20 04:35 TIBC 171 ug/dL (250-450) L 01/17/20 04:35 % Saturation 6 % (20-50) L 01/17/20 04:35 Transferrin 122 mg/dL (192-382) L 01/17/20 04:35 Ferritin 172.2 ng/mL (11.0-306.8) 01/17/20 04:35 Total Bilirubin 0.5 mg/dL (0.2-1.0) 01/16/20 20:28 AST 15 IU/L (10-42) 01/16/20 20:28 ALT 14 IU/L (10-60) 01/16/20 20:28 Alkaline Phosphatase 53 IU/L (42-121) 01/16/20 20:28 Lactate Dehydrogenase 121 IU/L (91-225) 01/17/20 09:45 Total Creatine Kinase 67 IU/L (22-269) 01/16/20 20:28 C-Reactive Protein 27.7 mg/dL (0-1.0) H 01/18/20 05:04 Total Protein 6.3 g/dL (6.7-8.2) L 01/16/20 20:28 Albumin 2.9 g/dL (3.2-5.5) L 01/16/20 20:28 Globulin 3.4 g/dL (2.1-4.2) 01/16/20 20:28 Albumin/Globulin Ratio 0.9 (1.0-2.2) L 01/16/20 20:28 Lipase 23 U/L (22-51) 01/16/20 20:28 Vitamin B12 1143 pg/mL (180-914) H 01/17/20 04:35 TSH 1.77 uIU/mL (0.34-5.60) 01/18/20 05:04 Urine Color YELLOW 01/16/20 20:15 Urine Clarity CLEAR (CLEAR) 01/16/20 20:15 Urine pH 7.0 PH (5.0-7.5) 01/16/20 20:15 Ur Specific [place] 1.010 (1.002-1.030) 01/16/20 20:15 Urine Protein NEGATIVE mg/dL (NEGATIVE) 01/16/20 20:15 Urine Glucose (UA) NEGATIVE mg/dL (NEGATIVE) 01/16/20 20:15 Urine Ketones NEGATIVE mg/dL (NEGATIVE) 01/16/20 20:15 Urine Occult Blood NEGATIVE (NEGATIVE) 01/16/20 20:15 Urine Nitrite NEGATIVE (NEGATIVE) 01/16/20 20:15 Urine Bilirubin NEGATIVE (NEGATIVE) 01/16/20 20:15 Urine Urobilinogen 0.2 (NORMAL) E.U./dL (NORMAL) 01/16/20 20:15 Ur Leukocyte Esterase NEGATIVE (NEGATIVE) 01/16/20 20:15 Ur Microscopic Review NOT INDICATED 01/16/20 20:15 Urine Culture Comments NOT INDICATED 01/16/20 20:15 Urine HCG, Qual NEGATIVE 01/16/20 20:15 Nasal Screen MRSA (PCR) NEGATIVE (NEGATIVE) 01/16/20 23:35 Last Dose Date 01/18/20 01/18/20 11:00 Last Dose Time 0533 01/18/20 11:00 Vancomycin Trough 15.1 ug/mL (10.0-20.0) 01/18/20 11:00 Urine Opiates Screen NEGATIVE (NEGATIVE) 01/16/20 20:15 Ur Oxycodone Screen NEGATIVE (NEGATIVE) 01/16/20 20:15 Urine Methadone Screen NEGATIVE (NEGATIVE) 01/16/20 20:15 Ur Propoxyphene Screen NEGATIVE (NEGATIVE) 01/16/20 20:15 Ur Barbiturates Screen NEGATIVE (NEGATIVE) 01/16/20 20:15 Ur Tricyclics Screen NEGATIVE (NEGATIVE) 01/16/20 20:15 Ur Phencyclidine Scrn NEGATIVE (NEGATIVE) 01/16/20 20:15 Ur Amphetamine Screen NEGATIVE (NEGATIVE) 01/16/20 20:15 U Methamphetamines Scrn NEGATIVE (NEGATIVE) 01/16/20 20:15 U Benzodiazepines Scrn NEGATIVE (NEGATIVE) 01/16/20 20:15 Urine Cocaine Screen NEGATIVE (NEGATIVE) 01/16/20 20:15 U Cannabinoids Screen POSITIVE (NEGATIVE) H 01/16/20 20:15 Ethyl Alcohol < 5.0 mg/dL 01/16/20 20:28 - Procedures Procedures: Procedures OTHER LOCAL DESTRUC SKIN (08/19/12) Sepsis Event Note (H) - Evaluation Current Stage of Sepsis: Sepsis Possible source of Sepsis: positive: Skin/soft tissue - Sepsis Criteria Sepsis Criteria: Recorded Temperature greater than 38.3C or Less than 36C, Recorded Heart Rate greater than 90 bpm, WBC count greater than 12,000 or less than 4000 ABX Reporting Has patient been on IV antibiotics over the past 48 hours?: Yes Current Medications - Current Medications Current Medications: Active Medications Acetaminophen (Tylenol) 650 mg PO Q4HR PRN PRN Reason: Pain 1 to 4 Last Admin: 01/18/20 15:01 Dose: 650 mg Documented by: Albuterol () 2.5 mg INH RTQ4H PRN PRN Reason: Wheezing Last Admin: 01/17/20 09:34 Dose: 2.5 mg Documented by: Alcohol (Nozin) 1 amp ISABELA BID [facility] Last Admin: 01/18/20 08:47 Dose: 1 amp Documented by: Baclofen (Lioresal) 20 mg PO QID [facility] Last Admin: 01/18/20 16:31 Dose: 20 mg Documented by: Duloxetine HCl (Cymbalta) 60 mg PO DAILY [facility] Last Admin: 01/18/20 08:46 Dose: 60 mg Documented by: Enoxaparin Sodium (Lovenox) 40 mg SUBQ DAILY [facility] Last Admin: 01/18/20 08:47 Dose: 40 mg Documented by: Famotidine (Pepcid) 20 mg PO DAILY [facility] Ferrous Sulfate (Feosol) 325 mg PO DAILYWM [facility] Last Admin: 01/18/20 08:46 Dose: 325 mg Documented by: Gabapentin (Neurontin) 300 mg PO TID [facility] Last Admin: 01/18/20 15:01 Dose: 300 mg Documented by: Hydromorphone HCl (Dilaudid Inj Syringe) 0.5 mg IVP Q2H PRN PRN Reason: PAIN Sodium Chloride (Normal Saline 0.9%) 1,000 mls @ 125 mls/hr IV .Q8H [facility] Last Admin: 01/18/20 16:25 Dose: 125 mls/hr Documented by: Vancomycin HCl 1 gm/Vancomycin HCl 500 mg/ Sodium Chloride 500 mls @ 250 mls/hr IV Q8H [facility] Last Infusion: 01/18/20 14:50 Dose: Infused Documented by: Ceftriaxone Sodium 2 gm/ (Sodium Chloride) 100 mls @ 200 mls/hr IV DAILY [facility] Last Infusion: 01/18/20 09:18 Dose: Infused Documented by: Insulin Aspart (Novolog) 1 - 5 unit SUBQ 0800,1200,1700,2100 [facility]; Protocol Last Admin: 01/18/20 16:56 Dose: Not Given Documented by: Levothyroxine Sodium (Synthroid) 75 mcg PO QDAC [facility] Last Admin: 01/18/20 06:02 Dose: 75 mcg Documented by: Lidocaine (Lidoderm Patch) 1 patch TOP DAILY PRN PRN Reason: PAIN Last Admin: 01/17/20 06:05 Dose: 1 patch Documented by: Nicotine (Nicoderm) 1 patch TOP DAILY [facility] Last Admin: 01/18/20 08:47 Dose: 1 patch Documented by: Ondansetron HCl (Zofran Inj) 4 mg IVP Q6HR PRN PRN Reason: Nausea / Vomiting Polyethylene Glycol (Miralax) 17 gm PO DAILY [facility] Last Admin: 01/18/20 08:48 Dose: 17 gm Documented by: Saccharomyces Boulardii (Florastor) 250 mg PO BIDWM [facility] Last Admin: 01/18/20 16:31 Dose: 250 mg Documented by: Sodium Chloride (Normal Saline Flush 0.9%) 10 ml IVP PRN PRN PRN Reason: NEEDED PER PROVIDER ORDERS Sodium Chloride (Normal Saline Flush 0.9%) 10 ml IVP 0100,0900,1700 [facility] Last Admin: 01/18/20 16:31 Dose: Not Given Documented by: Albuterol [Proventil Hfa] 1 puffs INH Q4HR PRN 08/18/12 Baclofen 20 mg PO QID 08/18/12 DULoxetine [Cymbalta] 60 mg PO DAILY 08/18/12 Gabapentin 300 - 600 mg PO QPM@2200 01/17/20 Gabapentin [Neurontin] 300 mg PO BID@1000,1600 01/17/20 Levothyroxine [Synthroid] 75 mcg PO QDAC 01/17/20 Metformin HCl [Glucophage] 850 mg PO BID 01/17/20
[2020-01-19] MEDS: SODIUM CHLORIDE FLUSH 0.9% 10 ML SYRINGE IVP SCH ×3 (00:15→16:09)
[2020-01-19] MEDS: SODIUM CHLORIDE 0.9% 1,000 ML IV SCH (02:10)
[2020-01-19] MEDS: VANCOMYCIN INJ 1 GM, VANCOMYCIN INJ 500 MG in SODIUM CHLORIDE 0.9% 500 ML IV SCH ×3 (03:43→20:32)
[2020-01-19 05:56] LABS: BASOPHILS # (AUTO) 0.1 10^3/uL (0.0-0.1); BASOPHILS % (AUTO) 0.5 %; EOSINOPHILS # (AUTO) 0.3 10^3/uL (0.0-0.7); EOSINOPHILS % (AUTO) 3.6 %; HGB - HEMOGLOBIN 10.9 g/dL (12.0-16.0); LYMPHOCYTES # (AUTO) 1.7 10^3/uL (1.5-3.5); LYMPHOCYTES % (AUTO) 18.2 %; MEAN CORPUSCULAR HEMOGLOBIN 31.8 pg (27.0-31.0); MEAN CORPUSCULAR VOLUME 96.2 fL (81.0-99.0); MEAN PLATELET VOLUME 8.8 fL (7.9-10.8); MONOCYTES # (AUTO) 0.8 10^3/uL (0.0-1.0); MONOCYTES % (AUTO) 8.7 %; NEUTROPHILS # (AUTO) 6.3 10^3/uL (1.5-6.6); NEUTROPHILS % (AUTO) 68.2 %; PLT - PLATELET COUNT 221 10^3/uL (130-450); RED BLOOD COUNT 3.43 10^6/uL (4.20-5.40); RED CELL DISTRIBUTION WIDTH 12.9 % (12.0-15.0); WHITE BLOOD COUNT 9.3 x10^3/uL (4.8-10.8)
[2020-01-19] MEDS: LEVOTHYROXINE 75 MCG TABLET PO SCH (06:04)
[2020-01-19] MEDS: GABAPENTIN 300 MG CAPSULE PO SCH ×3 (06:04→20:31)
[2020-01-19 06:16] LABS: CREATININE 0.4 mg/dL (0.4-1.0); CRP - C-REACTIVE PROTEIN 14.8 mg/dL (0-1.0)
[2020-01-19] MEDS: INSULIN ASPART 300 UNIT/3 ML PEN SUBQ SCH ×4 (08:05→21:08)
[2020-01-19] MEDS: DULoxetine 30 MG CAPSULE PO SCH (08:18)
[2020-01-19] MEDS: BACLOFEN 10 MG TABLET PO SCH ×4 (08:18→20:34)
[2020-01-19] MEDS: FAMOTIDINE 20 MG TABLET PO SCH (08:18)
[2020-01-19] MEDS: FERROUS SULFATE 325 MG TABLET PO SCH (08:18)
[2020-01-19] MEDS: ACETAMINOPHEN 325 MG TABLET PO PRN ×4 (08:18→20:33)
[2020-01-19] MEDS: SACCHAROMYCES BOULARDII 250 MG CAPSULE PO SCH ×2 (08:18→16:08)
[2020-01-19] MEDS: cefTRIAXone 2 GM in SODIUM CHLORIDE 0.9% MINIBAG 100 ML IV SCH (08:19)
[2020-01-19] MEDS: ethyl alcohoL 62% SWAB AMPULE NAS SCH ×2 (08:19→20:31)
[2020-01-19] MEDS: NICOTINE 14 MG PATCH TOP SCH (08:19)
[2020-01-19] MEDS: polyethylene glycoL 3350 17 GM PACKET PO SCH (08:23)
[2020-01-19] MEDS: ALBUTEROL NEB 2.5 MG/3 ML INH PRN (08:50)
[2020-01-19] MEDS ORDERED: SODIUM CHLORIDE 0.65% NASAL SPRAY NAS PRN (10:58)
[2020-01-19] MEDS ORDERED: PSEUDOEPHEDRINE 30 MG TABLET PO PRN (10:58)
--- NOTE | 2020-01-19 14:45 | PROVIDER PROGRESS NOTE ---
Subjective - Prog Note Date Prog Note Date: 01/19/20 - Subjective Pt reports feeling: Improved Subjective: Patient still complain pain in the cellulitis site with ice bag on. Erythema and swallow is reduced at cellulitis site, there still has some tenderness but reduced compared the previous. Patient had ultrasound and CAT scan before which show there is no abscess. She has no fever, and WBC and CRP continue trending down. Blood culture is negative. Current Medications - Current Medications Current Medications: Active Medications Acetaminophen (Tylenol) 650 mg PO Q4HR PRN PRN Reason: Pain 1 to 4 Last Admin: 01/19/20 12:21 Dose: 650 mg Documented by: Albuterol () 2.5 mg INH RTQ4H PRN PRN Reason: Wheezing Last Admin: 01/19/20 08:50 Dose: 2.5 mg Documented by: Alcohol (Nozin) 1 amp ISABELA BID [facility] Last Admin: 01/19/20 08:19 Dose: 1 amp Documented by: Baclofen (Lioresal) 20 mg PO QID [facility] Last Admin: 01/19/20 12:22 Dose: 20 mg Documented by: Duloxetine HCl (Cymbalta) 60 mg PO DAILY [facility] Last Admin: 01/19/20 08:18 Dose: 60 mg Documented by: Famotidine (Pepcid) 20 mg PO DAILY [facility] Last Admin: 01/19/20 08:18 Dose: 20 mg Documented by: Ferrous Sulfate (Feosol) 325 mg PO DAILYWM [facility] Last Admin: 01/19/20 08:18 Dose: 325 mg Documented by: Gabapentin (Neurontin) 300 mg PO TID [facility] Last Admin: 01/19/20 12:46 Dose: 300 mg Documented by: Hydromorphone HCl (Dilaudid Inj Syringe) 0.5 mg IVP Q2H PRN PRN Reason: PAIN Last Admin: 01/18/20 21:42 Dose: 0.5 mg Documented by: Vancomycin HCl 1 gm/Vancomycin HCl 500 mg/ Sodium Chloride 500 mls @ 250 mls/hr IV Q8H [facility] Last Admin: 01/19/20 12:46 Dose: 250 mls/hr Documented by: Ceftriaxone Sodium 2 gm/ (Sodium Chloride) 100 mls @ 200 mls/hr IV DAILY [facility] Last Infusion: 01/19/20 08:49 Dose: Infused Documented by: Insulin Aspart (Novolog) 1 - 5 unit SUBQ 0800,1200,1700,2100 [facility]; Protocol Last Admin: 01/19/20 12:23 Dose: Not Given Documented by: Levothyroxine Sodium (Synthroid) 75 mcg PO QDAC [facility] Last Admin: 01/19/20 06:04 Dose: 75 mcg Documented by: Lidocaine (Lidoderm Patch) 1 patch TOP DAILY PRN PRN Reason: PAIN Last Admin: 01/17/20 06:05 Dose: 1 patch Documented by: Nicotine (Nicoderm) 1 patch TOP DAILY [facility] Last Admin: 01/19/20 08:19 Dose: 1 patch Documented by: Ondansetron HCl (Zofran Inj) 4 mg IVP Q6HR PRN PRN Reason: Nausea / Vomiting Polyethylene Glycol (Miralax) 17 gm PO DAILY [facility] Last Admin: 01/19/20 08:23 Dose: Not Given Documented by: Pseudoephedrine HCl (Sudafed) 30 mg PO Q6HR PRN PRN Reason: Cold Symptons Last Admin: 01/19/20 12:21 Dose: 30 mg Documented by: Saccharomyces Boulardii (Florastor) 250 mg PO BIDWM [facility] Last Admin: 01/19/20 08:18 Dose: 250 mg Documented by: Sodium Chloride (Normal Saline Flush 0.9%) 10 ml IVP PRN PRN PRN Reason: NEEDED PER PROVIDER ORDERS Last Admin: 01/19/20 08:20 Dose: 10 ml Documented by: Sodium Chloride (Normal Saline Flush 0.9%) 10 ml IVP 0100,0900,1700 [facility] Last Admin: 01/19/20 08:19 Dose: 10 ml Documented by: Sodium Chloride ([place]) 2 sprays ISABELA Q4HR PRN PRN Reason: Nasal Congestion Albuterol [Proventil Hfa] 1 puffs INH Q4HR PRN 08/18/12 Baclofen 20 mg PO QID 08/18/12 DULoxetine [Cymbalta] 60 mg PO DAILY 08/18/12 Gabapentin 300 - 600 mg PO QPM@2200 01/17/20 Gabapentin [Neurontin] 300 mg PO BID@1000,1600 01/17/20 Levothyroxine [Synthroid] 75 mcg PO QDAC 01/17/20 Metformin HCl [Glucophage] 850 mg PO BID 01/17/20 Objective - Vital Signs/Intake & Output Vital Signs: Vital Signs x48h Temp Pulse Pulse Resp BP Pulse Ox 01/19/20 08:50 77 18 01/19/20 08:00 36.5 C 74 16 101/61 97 Intake & Output: Intake & Output 01/16/20 01/17/20 01/18/20 01/19/20 23:59 23:59 23:59 23:59 Intake Total 1050 5653.333 5800 3580 Balance 1050 5653.333 5800 3580 - Objective General Appearance: positive: No acute distress, Alert. negative: Lethargic Eyes Bilateral: positive: Normal inspection, PERRL, No lid inflammation ENT: positive: ENT inspection nml, No signs of dehydration. negative: Purulent nasal drainage Neck: positive: Nml inspection, Thyroid nml, Trachea midline. negative: Thyr omegaly, Stiff neck, Tracheal deviation Respiratory: positive: Chest non-tender, No respiratory distress. negative: Wheezes, Rales, Rhonchi Cardiovascular: positive: Regular rate & rhythm, No murmur. negative: Tachycardia, Bradycardia, Systolic murmur, Diastolic murmur Peripheral Pulses: 2+ Radial (R), 2+ Radial (L) Abdomen: positive: Non-tender, Nml bowel sounds, No distention. negative: Tende rness, Guarding, Rebound Back: positive: Nml inspection. negative: CVA tenderness (R), CVA tenderness (L) Skin: positive: Color nml, No rash, Warm, Dry. negative: Cyanosis, Diaphoresis, Pallor Extremities: positive: Non-tender, Full ROM, Nml appearance. negative: Calf tenderness Neurologic/Psychiatric: positive: Oriented x3, Motor nml, Sensation nml. negative: Mood/affect nml, Weakness, Sensory loss, Facial droop, Slurred/abnml speech, Depressed mood/affect - Lab Results Fish Bones: 01/19/20 05:42 01/19/20 05:42 Other Labs: Lab Results x24hrs 01/19/20 01/19/20 01/19/20 Range/Units 12:02 07:57 05:42 WBC (4.8-10.8) x10^3/uL RBC (4.20-5.40) 10^6/uL Hgb (12.0-16.0) g/dL Hct (37.0-47.0) % MCV (81.0-99.0) fL MCH (27.0-31.0) pg MCHC (32.0-36.0) g/dL RDW (12.0-15.0) % Plt Count (130-450) 10^3/uL MPV (7.9-10.8) fL Neut # (Auto) (1.5-6.6) 10^3/uL Lymph # (Auto) (1.5-3.5) 10^3/uL [place] # (Auto) (0.0-1.0) 10^3/uL Eos # (Auto) (0.0-0.7) 10^3/uL Baso # (Auto) (0.0-0.1) 10^3/uL Absolute Nucleated RBC x10^3/uL Nucleated RBC % /100WBC Sodium 139 (135-145) mmol/L Potassium 3.7 (3.5-5.0) mmol/L Chloride 108 (101-111) mmol/L Carbon Dioxide 23 (21-32) mmol/L Anion Gap 8.0 (6-13) BUN 5 L (6-20) mg/dL Creatinine 0.4 (0.4-1.0) mg/dL Estimated GFR (MDRD) 173 (>89) Glucose 105 H (70-100) mg/dL POC Whole Bld Glucose 111 H 87 (70 - 100) mg/dL Calcium 8.0 L (8.5-10.3) mg/dL C-Reactive Protein 14.8 H (0-1.0) mg/dL 01/19/20 01/18/20 01/18/20 Range/Units 05:42 20:33 16:49 WBC 9.3 (4.8-10.8) x10^3/uL RBC 3.43 L (4.20-5.40) 10^6/uL Hgb 10.9 L (12.0-16.0) g/dL Hct 33.0 L (37.0-47.0) % MCV 96.2 (81.0-99.0) fL MCH 31.8 H (27.0-31.0) pg MCHC 33.0 (32.0-36.0) g/dL RDW 12.9 (12.0-15.0) % Plt Count 221 (130-450) 10^3/uL MPV 8.8 (7.9-10.8) fL Neut # (Auto) 6.3 (1.5-6.6) 10^3/uL Lymph # (Auto) 1.7 (1.5-3.5) 10^3/uL [place] # (Auto) 0.8 (0.0-1.0) 10^3/uL Eos # (Auto) 0.3 (0.0-0.7) 10^3/uL Baso # (Auto) 0.1 (0.0-0.1) 10^3/uL Absolute Nucleated RBC 0.00 x10^3/uL Nucleated RBC % 0.0 /100WBC Sodium (135-145) mmol/L Potassium (3.5-5.0) mmol/L Chloride (101-111) mmol/L Carbon Dioxide (21-32) mmol/L Anion Gap (6-13) BUN (6-20) mg/dL Creatinine (0.4-1.0) mg/dL Estimated GFR (MDRD) (>89) Glucose (70-100) mg/dL POC Whole Bld Glucose 119 H 124 H (70 - 100) mg/dL Calcium (8.5-10.3) mg/dL C-Reactive Protein (0-1.0) mg/dL ABX Reporting Has patient been on IV antibiotics over the past 48 hours?: Yes Sepsis Event Note (H) - Evaluation Current Stage of Sepsis: Sepsis Possible source of Sepsis: positive: Skin/soft tissue - Sepsis Criteria Sepsis Criteria: Recorded Temperature greater than 38.3C or Less than 36C, Recorded Heart Rate greater than 90 bpm, WBC count greater than 12,000 or less than 4000 Assessment/Plan - Problem List (1) Sepsis Impression: 109,Patient has no more fever, WBC is normal, Tachycardia is resolved, acute sepsis is resolved. 108,Patient Reported she feel better. Patient has no more fever and her WBC is trending down, Blood culture is negative. Continue antibiotics Rocephin and vancomycin, Continue pain control Patient Still has a fever, elevated WBC, patient WBC still have 22. Patient had cellulitis in the right buttock. Blood culture is pending, patient was given antibiotics vancomycin per pharmacy recommendation.We will continue intravenous IV fluids, continue pain medication. (2) Cellulitis, gluteal, right 109,Patient continues complain of some pain in the cellulitis site. But his infection size, tenderness, erythema are all reduced. WBC and CRP continue trending down. Continue antibiotics Rocephin and vancomycin. 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 Continue with antibiotics, Continue pain control Patient cellulitis location had some tenderness.Ordered ultrasound which show patient has no abscess.We will continue with antibiotics and intravenous IV fluids and pain control. (3) Diabetes mellitus Patient A1c is 5.4, patient may hold metformin in the d/c. (4) Hypothyroidism Conclusion/Plan: TSH is normal, continue Synthroid 75 mcg every morning ordered. (5)iron deficiency anemia Patient reported she had iron deficiency anemia, she takes iron in the home, will resume iron
[2020-01-19] MEDS ORDERED: diphenhydrAMINE 25 MG CAPSULE PO PRN (21:33)
[2020-01-20] MEDS: LIDOCAINE PATCH 5% TOP PRN (01:16)
[2020-01-20] MEDS: SODIUM CHLORIDE FLUSH 0.9% 10 ML SYRINGE IVP SCH ×2 (01:17→09:20)
[2020-01-20] MEDS: VANCOMYCIN INJ 1 GM, VANCOMYCIN INJ 500 MG in SODIUM CHLORIDE 0.9% 500 ML IV SCH (03:49)
[2020-01-20] MEDS: GABAPENTIN 300 MG CAPSULE PO SCH ×2 (05:49→14:41)
[2020-01-20] MEDS: LEVOTHYROXINE 75 MCG TABLET PO SCH (05:50)
[2020-01-20 06:21] LABS: BASOPHILS # (AUTO) 0.1 10^3/uL (0.0-0.1); BASOPHILS % (AUTO) 0.6 %; EOSINOPHILS # (AUTO) 0.3 10^3/uL (0.0-0.7); HGB - HEMOGLOBIN 10.7 g/dL (12.0-16.0); LYMPHOCYTES # (AUTO) 1.9 10^3/uL (1.5-3.5); LYMPHOCYTES % (AUTO) 19.8 %; MEAN CORPUSCULAR HEMOGLOBIN 31.1 pg (27.0-31.0); MEAN CORPUSCULAR HGB CONC 33.1 g/dL (32.0-36.0); MEAN CORPUSCULAR VOLUME 93.9 fL (81.0-99.0); MEAN PLATELET VOLUME 9.1 fL (7.9-10.8); MONOCYTES # (AUTO) 0.9 10^3/uL (0.0-1.0); MONOCYTES % (AUTO) 8.9 %; NEUTROPHILS # (AUTO) 6.4 10^3/uL (1.5-6.6); NEUTROPHILS % (AUTO) 66.8 %; PLT - PLATELET COUNT 260 10^3/uL (130-450); RED BLOOD COUNT 3.44 10^6/uL (4.20-5.40); RED CELL DISTRIBUTION WIDTH 12.7 % (12.0-15.0); WHITE BLOOD COUNT 9.6 x10^3/uL (4.8-10.8)
[2020-01-20 06:38] LABS: BUN - BLOOD UREA NITROGEN < 5 mg/dL (6-20); CALCIUM 8.3 mg/dL (8.5-10.3); CARBON DIOXIDE - CO2 23 mmol/L (21-32); CHLORIDE 109 mmol/L (101-111); CREATININE 0.3 mg/dL (0.4-1.0); CRP - C-REACTIVE PROTEIN 8.6 mg/dL (0-1.0); GLUCOSE 110 mg/dL (70-100); SODIUM 140 mmol/L (135-145)
[2020-01-20] MEDS: INSULIN ASPART 300 UNIT/3 ML PEN SUBQ SCH ×2 (07:47→12:25)
[2020-01-20 07:49] VITALS: BP 107/58
[2020-01-20] MEDS ORDERED: SULFAMETH/TRIMETH DS 800/160 MG TABLET PO SCH ×2 (09:00)
[2020-01-20] MEDS: BACLOFEN 10 MG TABLET PO SCH ×2 (09:19→12:42)
[2020-01-20] MEDS: FAMOTIDINE 20 MG TABLET PO SCH (09:20)
[2020-01-20] MEDS: NICOTINE 14 MG PATCH TOP SCH (09:20)
[2020-01-20] MEDS: DULoxetine 30 MG CAPSULE PO SCH (09:20)
[2020-01-20] MEDS: SACCHAROMYCES BOULARDII 250 MG CAPSULE PO SCH (09:20)
[2020-01-20] MEDS: polyethylene glycoL 3350 17 GM PACKET PO SCH (09:21)
[2020-01-20] MEDS: ethyl alcohoL 62% SWAB AMPULE NAS SCH (09:33)
[2020-01-20] MEDS: FERROUS SULFATE 325 MG TABLET PO SCH (09:33)
[2020-01-20] MEDS: ACETAMINOPHEN 325 MG TABLET PO PRN (11:16)
--- NOTE | 2020-01-20 12:25 | HISTORY & PHYSICAL EXAMINATION ---
Chief Complaint - Chief Complaint Chief Complaint: skin infection and pain right buttock History of Present Illness - Admitted From Admitted From:: she was admitted 4 days ago with right buttock infection/ cellulitis - History Obtained From Records Reviewed: yes History obtained from: patient Exam Limitations: none - History of Present Illness HPI Comment/Other: She has history of necrotizing infection left leg many years ago. She has diabetes. She had imaging [address] scan and ultrasound. No abscess was identified. 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 She has been smoking for 30+ years. She also uses marijuana. - POLST Patient has POLST: No POLST Status: Full Code Meds/Allgy - Home Medications Home Medications: Ambulatory Orders Medication Instructions Recorded Confirmed Albuterol [Proventil Hfa] 1 puffs INH Q4HR PRN 08/18/12 01/17/20 Baclofen 20 mg PO QID 08/18/12 01/17/20 DULoxetine [Cymbalta] 60 mg PO DAILY 08/18/12 01/17/20 Gabapentin 300 - 600 mg PO QPM@2200 01/17/20 01/17/20 Gabapentin [Neurontin] 300 mg PO BID@1000,1600 01/17/20 01/17/20 Levothyroxine [Synthroid] 75 mcg PO QDAC 01/17/20 01/17/20 Metformin HCl [Glucophage] 850 mg PO BID 01/17/20 01/17/20 - Allergies Allergies/Adverse Reactions: Allergies Allergy/AdvReac Type Severity Reaction Status Date / Time Penicillins Allergy Severe See Verified 11/07/14 06:05 comments Exam - Vital Signs Vital Signs: Vital Signs x48h Temp Pulse Resp BP Pulse Ox 01/20/20 07:48 36.7 C 60 18 107/58 L 96 - Physical Exam General Appearance: positive: No acute distress, Alert Eyes Bilateral: positive: Normal inspection, PERRL, EOMI ENT: positive: No signs of dehydration Neck: positive: No JVD Respiratory: positive: No respiratory distress Rectal: positive: Non-tender Extremities: positive: Full ROM, Other (right lateral buttock mild erythema. 6 to 8 cm induration by 2 to 3 cm deep no fluctuance, minimal tenderness) Sepsis Event Note (H) - Evaluation Current Stage of Sepsis: Sepsis Possible source of Sepsis: positive: Skin/soft tissue - Sepsis Criteria Sepsis Criteria: Recorded Temperature greater than 38.3C or Less than 36C, Recorded Heart Rate greater than 90 bpm, WBC count greater than 12,000 or less than 4000 Conclusion/Plan - Lab Results Fish Bones: 01/20/20 05:50 01/20/20 05:50 - Diagnostic Imaging Results Diagnostic Imaging Results: positive: Final report reviewed, Read independently (ct scan picutures reviewed) - Other Other Results/Comments: Agree with past care and plan. I agree she still has significant swelling; however, she is much improved and has minimal tenderness. Clinically she does not have an abscess. Clinically she has induration which could take 2 to 3 weeks to completely resolve. I recommend ultrasound to reconfirm an abscess has not developed. She feels well and would like to go home. If an abscess is identified plan I and D in the operating room. If no abscess is identified she may follow up in the surgery office after discharge [phone]
--- NOTE | 2020-01-20 12:38 | Discharge Plan ---
Discharge Plan Problem Reviewed?: Yes Disposition: Home, Self Care Condition: Stable Prescriptions: Hydrocodone/Acetaminophen [Hydrocodone-Acetamin 5-325 mg] 1 each PO Q6HR PRN #10 tablet PRN Reason: Pain Sulfamethox/Trimeth 800/160 [Bactrim Ds] 2 tab PO BID #40 tablet Saccharomyces Boulardii [Florastor] 250 mg PO BIDWM #20 capsule Diet: Diabetic Activity Restrictions: Activity as Tolerated Health Concerns: You were seen in the hospital because of cellulitis of your right buttock. This has improved with IV antibiotics. Imaging has not revealed an abscess. You will need to continue the oral antibiotics for 10 more days. Plan of Treatment: Please take the antibiotic as prescribed twice a day for 10 more days. I have also provided you with a prescription for probiotic and hydrocodone for a few days for pain control. You can stop taking the metformin as your A1c is in the normal range. Assessment: Patient expressed understanding of the treatment plan. Additional Instructions or Follow Up instructions: Follow-up with your primary care provider in 1 week. It is also recommended that you follow-up with a general surgeon if need be and your primary care provider can place a consult for that. The surgery office number is [phone]. Please return to the emergency department if you develop fevers, chills, worsening redness, pain or drainage. No Smoking: If you smoke, Please STOP! Call for help. Follow-up with: Silvia Gabriel ARNP [Primary Care Provider] -
--- NOTE | 2020-01-20 14:42 | DISCHARGE SUMMARY ---
"Discharge Summary Admit Date: 01/16/20 Discharge Date: 01/20/20 Discharging Provider: Cricket Lawrence Primary Care Provider: Silvia Gabriel Code Status: Attempt Resuscitation Condition at Discharge: Stable Discharge Disposition: 01 Home, Self Care - DIAGNOSES Admission Diagnoses: Cellulitis, gluteal, right Diabetes mellitus Hypothyroidism Discharge Diagnoses with Status of Each Condition: Sepsis - resolved. Cellulitis, gluteal, right - improved. Diabetes mellitus - resolved. Hypothyroidism - stable. Peripheral neuropathy - stable. - HPI History of Present Illness: H&P per Dr. Whitfield: Patient is a 44-year-old female with medical history significant for diabetes mellitus on metformin, hypothyroidism, Depression who presented to the ED with redness over the right buttock and fever. This has been going on for 3 days. She has a history of necrotizing fasciitis for which surgery was done with excision of the involved area which was the inner right thigh. She is also had an abscess in the past for which surgery was done to the right lower abdomen. As a result of these previous infectious and surgical histories she was concerned and came to the emergency room for evaluation. In the ED she was noted to be tachycardic with a heart rate of 112. She also had a temperature of 37.7 C and a white blood cell count of 24. There was significant erythema to the right buttock area. She reported pain in the general area. CT scan of the pelvis with contrast was negative for any abscess. She denied chest pain, abdominal pain, dyspnea. She was nauseous earlier but was given medication and her symptoms resolved. As a result of her clinical presentation she is being admitted for further treatment. - CONSULTS | PROCEDURES Consultations: General Surgery Procedures: CT on admission showed gluteal soft tissue stranding and edema suggestive of cellulitis. No visualized abscess. Pelvis ultrasound on admission also showed diffuse right buttock soft tissue edema with no evidence of abscess. Repeat pelvis ultrasound on January 19 showed a 2.7 cm heterogeneously hypoechoic fluid collection in the area of the open wound along the right buttocks that is compatible with a phlegmon versus possible developing abscess. No organized fluid collection or drainable fluid collection is identified. - HOSPITAL COURSE Hospital Course: She was admitted to the floor for sepsis secondary to right gluteal cellulitis. There is no evidence of abscess on imaging that was obtained. She was treated with vancomycin and ceftriaxone. Her white count improved each day until it normalized. Her CRP also trended down each day. There is also improvement in the erythema and pain. On the day of discharge, the patient was concerned that there was still an induration present. General surgery was consulted and recommended repeating an ultrasound to evaluate for an abscess. This did reveal a 2.7 cm fluid collection although this was not felt to be an organized fluid collection. General surgery felt that this can just be managed with antibiotics and there was no need for surgical intervention. The patient was discharged on oral Bactrim 2 tablets twice daily after discussion with pharmacy to complete 10 more days of therapy. She was asked to follow-up with a primary care provider a nd she can also follow-up with general surgery on outpatient basis. She was asked to return to the emergency department if she developed any fevers, chills, worsening erythema or pain. She was also provided with 10 tablets of hydrocodone for pain. It was recommended that she discontinue metformin on discharge given her A1c was less than 5.6%. She preferred to continue this for the time being and she will follow-up with her primary care provider to discuss discontinuing metformin. - ALLERGIES Allergies/Adverse Reactions: Allergies Allergy/AdvReac Type Severity Reaction Status Date / Time Penicillins Allergy Severe See Verified 11/07/14 06:05 comments - MEDICATIONS Home Medications: Ambulatory Orders Medication Instructions Recorded Confirmed Albuterol [Proventil Hfa] 1 puffs INH Q4HR PRN 08/18/12 01/17/20 Baclofen 20 mg PO QID 08/18/12 01/17/20 DULoxetine [Cymbalta] 60 mg PO DAILY 08/18/12 01/17/20 Gabapentin 300 - 600 mg PO QPM@2200 01/17/20 01/17/20 Gabapentin [Neurontin] 300 mg PO BID@1000,1600 01/17/20 01/17/20 Levothyroxine [Synthroid] 75 mcg PO QDAC 01/17/20 01/17/20 Metformin HCl [Glucophage] 850 mg PO BID 01/17/20 01/17/20 Hydrocodone/Acetaminophen 1 each PO Q6HR PRN #10 tablet 01/20/20 [Hydrocodone-Acetamin 5-325 mg] Saccharomyces Boulardii [Florastor] 250 mg PO BIDWM #20 capsule 01/20/20 Sulfamethox/Trimeth 800/160 2 tab PO BID #40 tablet 01/20/20 [Bactrim Ds] - PHYSICAL EXAM AT DISCHARGE General Appearance: positive: No acute distress, Alert Eyes Bilateral: positive: Normal inspection, Conjunctivae nml ENT: positive: ENT inspection nml, Other (Poor dentition.) Neck: positive: Nml inspection Respiratory: positive: No respiratory distress. negative: Wheezes, Rales Cardiovascular: positive: Regular rate & rhythm, No murmur. negative: Tachycardia, Systolic murmur Abdomen: positive: Non-tender, No distention, Tenderness. negative: Guarding, Rebound Skin: positive: Warm, Dry, Other (The right buttock has mild erythema with an area of induration approximately 5 x 7 cm. There is no fluctuance noted and t here is only minimal tenderness.) Extremities: positive: Full ROM, No pedal edema Neurologic/Psychiatric: positive: Oriented x3, Motor nml. negative: Disoriented to person, Disoriented to place, Disoriented to time Physical Exam Other/Comments: Vital Signs - 24 hr 01/19/20 01/20/20 01/20/20 20:40 01:00 07:48 Temperature 36.8 C 36.7 C Heart Rate 70 Heart Rate [ 62 60 Brachial] Respiratory 18 17 18 Rate Blood Pressure 100/57 L 107/58 L [Right Brachial artery] O2 Saturation 93 96 Oxygen O2 Source Room air - LABS Result Diagrams: 01/20/20 05:50 01/20/20 05:50 Other Lab Results: Laboratory Results - last 24 hr 01/19/20 01/20/20 01/20/20 20:47 05:50 05:50 WBC 9.6 RBC 3.44 L Hgb 10.7 L Hct 32.3 L MCV 93.9 MCH 31.1 H MCHC 33.1 RDW 12.7 Plt Count 260 MPV 9.1 Neut # (Auto) 6.4 Lymph # (Auto) 1.9 [place] # (Auto) 0.9 Eos # (Auto) 0.3 Baso # (Auto) 0.1 Absolute Nucleated RBC 0.00 Nucleated RBC % 0.0 Sodium 140 Potassium 3.6 Chloride 109 Carbon Dioxide 23 Anion Gap 8.0 BUN < 5 L Creatinine 0.3 L Estimated GFR (MDRD) 242 Glucose 110 H POC Whole Bld Glucose 113 H Calcium 8.3 L C-Reactive Protein 8.6 H 01/20/20 01/20/20 07:33 11:08 WBC RBC Hgb Hct MCV MCH MCHC RDW Plt Count MPV Neut # (Auto) Lymph # (Auto) [place] # (Auto) Eos # (Auto) Baso # (Auto) Absolute Nucleated RBC Nucleated RBC % Sodium Potassium Chloride Carbon Dioxide Anion Gap BUN Creatinine Estimated GFR (MDRD) Glucose POC Whole Bld Glucose 107 H 156 H Calcium C-Reactive Protein - SEPSIS Current Stage of Sepsis: Resolved Possible source of Sepsis: Skin/soft tissue Sepsis Criteria: Recorded Temperature greater than 38.3C or Less than 36C, Recorded Heart Rate greater than 90 bpm, WBC count greater than 12,000 or less than 4000 - FOLLOW UP Follow Up: She was asked to follow-up with her primary care provider in 1 week and general surgery as well. - TIME SPENT Time Spent in Discharge (Minutes): 34"
--- NOTE | 2020-01-20 16:12 | Ultrasound Report ---
PROCEDURE: Pelvic Limited or F/U INDICATIONS: Right gluteal cellulitis. Eval for abscess. TECHNIQUE: Real-time transabdominal scanning was performed of the pelvic organs, with image documentation. COMPARISON: 01/17/2020. FINDINGS: Multiple grayscale and color Doppler images of the right buttocks was interrogated as before. In the region of the open wound, there is now a new 2.7 x 1.7 x 1.5 cm heterogeneous, hypoechoic fluid colle ction with tracking towards the skin surface. There is moderate surrounding subcutaneous soft tissue edema. There is adjacent vascularity. No organized fluid collection seen at this time. IMPRESSION: A 2.7 cm heterogeneously hypoechoic fluid collection in the area of the open wound invol ving the right buttocks is compatible with a phlegmon versus possible developing abscess. No organize d fluid collection or drainable fluid collection is identified this time. Reviewed by: Hector Sharif MD on 01/20/2020 4:11 PM PDT Approved by: Hector Sharif MD on 01/20/2020 4:11 PM PDT Station ID: [id number]
== END 2020-01-20 15:04 | disposition home or self-care (01) | DRG 872 ==
LOC: ED 18:42 → MS2 22:38
PROVIDERS: ADMIT Internal Medicine; ATTEND Internal Medicine
DX: A41.9 Sepsis, unspecified organism (principal); L03.317 Cellulitis of buttock; J45.909 Unspecified asthma, uncomplicated; E11.9 Type 2 diabetes mellitus without complications; E11.42 Type 2 diabetes mellitus with diabetic polyneuropathy; F17.200 Nicotine dependence, unspecified, uncomplicated; E03.9 Hypothyroidism, unspecified; F32.9 Major depressive disorder, single episode, unspecified; D50.9 Iron deficiency anemia, unspecified; F17.210 Nicotine dependence, cigarettes, uncomplicated; E78.00 Pure hypercholesterolemia, unspecified; Z79.84 Long term (current) use of oral hypoglycemic drugs; Z79.51 Long term (current) use of inhaled steroids; Z79.899 Other long term (current) drug therapy; Z86.19 Personal history of other infectious and parasitic diseases; Z72.89 Other problems related to lifestyle
CPT/HCPCS: 36415; 72193; 76857; 80048; 80053; 80202; 81003; 81025; 82550; 82607; 82728; 83036; 83540; 83605; 83615; 83690; 84443; 84466; 85025; 85045; 85610; 85730; 86140; 87040; 87640; 94640; 96365; 96375; 99283; 99285; A9270; J1170; J1650; J3370; Q9967; 80306; 80320; 81001; 87086

== ENCOUNTER 2020-08-15 07:39 | Outpatient (CLI) | payer MEDICARE, MEDICAID ==
[2020-08-15 14:30] LABS: BASOPHILS # (AUTO) 0.1 10^3/uL (0.0-0.1); BASOPHILS % (AUTO) 0.6 %; EOSINOPHILS # (AUTO) 0.3 10^3/uL (0.0-0.7); EOSINOPHILS % (AUTO) 2.7 %; HCT - HEMATOCRIT 44.7 % (37.0-47.0); HGB - HEMOGLOBIN 15.1 g/dL (12.0-16.0); LYMPHOCYTES % (AUTO) 29.2 %; MEAN CORPUSCULAR HEMOGLOBIN 31.9 pg (27.0-31.0); MEAN CORPUSCULAR HGB CONC 33.8 g/dL (32.0-36.0); MEAN CORPUSCULAR VOLUME 94.3 fL (81.0-99.0); MEAN PLATELET VOLUME 8.9 fL (7.9-10.8); MONOCYTES # (AUTO) 0.7 10^3/uL (0.0-1.0); MONOCYTES % (AUTO) 6.4 %; NEUTROPHILS # (AUTO) 6.3 10^3/uL (1.5-6.6); NEUTROPHILS % (AUTO) 60.7 %; PLT - PLATELET COUNT 267 10^3/uL (130-450); RED BLOOD COUNT 4.74 10^6/uL (4.20-5.40); RED CELL DISTRIBUTION WIDTH 12.6 % (12.0-15.0); WHITE BLOOD COUNT 10.3 x10^3/uL (4.8-10.8)
[2020-08-15 14:50] LABS: ALBUMIN 4.1 g/dL (3.2-5.5); ALBUMIN/GLOBULIN RATIO 1.5 (1.0-2.2); ALKALINE PHOSPHATASE 39 IU/L (42-121); ALT ALANINE AMINOTRANSFERASE 18 IU/L (10-60); AST ASPARTATE AMINOTRANSFERASE 19 IU/L (10-42); BILIRUBIN,TOTAL 0.4 mg/dL (0.2-1.0); BUN - BLOOD UREA NITROGEN 11 mg/dL (6-20); CALCIUM 9.1 mg/dL (8.5-10.3); CARBON DIOXIDE - CO2 25 mmol/L (21-32); CHLORIDE 104 mmol/L (101-111); CHOL/HDL RATIO 4.5 (<4.4); CHOLESTEROL 219 mg/dL; CREATININE 0.5 mg/dL (0.4-1.0); GFR - MDRD 133 (>89); GLUCOSE 138 mg/dL (70-100); HDL CHOLESTEROL 49 mg/dL; LDL CHOLESTEROL,CALCULATED 150 mg/dL; LDL/HDL RATIO 3.1 (<4.4); POTASSIUM 4.6 mmol/L (3.5-5.0); SODIUM 137 mmol/L (135-145); TOTAL PROTEIN 6.8 g/dL (6.7-8.2); TRIGLYCERIDES 100 mg/dL; VLDL CHOLESTEROL 20 mg/dL
[2020-08-15 15:01] LABS: THYROID STIMULATING HORMONE 1.97 uIU/mL (0.34-5.60)
[2020-08-15 15:21] LABS: MICROALBUM/CREATININE RATIO,UR 2.9 ug/mg (<30.0); MICROALBUMIN,URINE 0.3 mg/dL (0-300.0)
[2020-08-15 15:29] LABS: FOLLICLE STIMULATING HORMONE 18.84 mIU/mL
[2020-08-15 15:30] LABS: LUTEINIZING HORMONE 17.22 mIU/mL
[2020-08-15 20:16] LABS: ESTIMATED AVERAGE GLUCOSE 114 mg/dL (70-100); HEMOGLOBIN A1c% 5.6 % (4.27-6.07)
[2020-08-16 04:21] LABS: ESTRADIOL 149 pg/mL; PROGESTERONE <0.5 ng/mL
== END 2020-08-15 07:40 | disposition home or self-care (01) ==
LOC: LAB.S 07:39
PROVIDERS: ATTEND Physician Assistant
DX: E11.9 Type 2 diabetes mellitus without complications (principal); E66.01 Morbid (severe) obesity due to excess calories; R94.5 Abnormal results of liver function studies; E03.9 Hypothyroidism, unspecified; E78.5 Hyperlipidemia, unspecified; Z78.0 Asymptomatic menopausal state; F41.9 Anxiety disorder, unspecified; F32.9 Major depressive disorder, single episode, unspecified
CPT/HCPCS: 36415; 80053; 80061; 82043; 82570; 82670; 83001; 83002; 83036; 83721; 84144; 84443; 85025

== ENCOUNTER 2021-03-07 04:38 | Emergency (ER) | payer MEDICARE, MEDICAID ==
--- NOTE | 2021-03-07 05:06 | ED Physician Documentation ---
History of Present Illness - Stated complaint Stated Complaint: VOMITING, WEAKNESS, HOT/COLD FLASHES - Chief complaint Chief Complaint: Abd Pain - History obtained from History obtained from: Patient - History of Present Illness Timing: How many days ago (3) Pain level now: 4 (GOOD) Improved by: nothing Worsened by: no exacerbating factors - Additonal information Additional information: c/o nausea, vomiting, generalized headache, chills, sweats. symptoms x 3 days. she is not COVID vaccinated. has not taken temperature at home but she says s.o. has told her she has episodically felt hot to touch. denies dyspnea, cough, abdominal pain. Review of Systems Constitutional: reports: Chills, Fatigue, Sweats, Other (uncertain if fever; hot to touch at times at home but has not taken temperature) Eyes: reports: Reviewed and negative Ears: reports: Reviewed and negative Nose: reports: Reviewed and negative Throat: reports: Reviewed and negative Cardiac: reports: Reviewed and negative Respiratory: reports: Reviewed and negative GI: reports: Nausea. denies: Abdominal Pain, Constipation, Diarrhea : reports: Dysuria Neurologic: reports: Headache. denies: Focal weakness, Numbness PD PAST MEDICAL HISTORY - Past Medical History Cardiovascular: High cholesterol Respiratory: Asthma Endocrine/Autoimmune: HyPOthyroidism, Type 2 diabetes GI: None : None HEENT: None Psych: None Musculoskeletal: None Derm: Other drug resistant infections - Past Surgical History Past Surgical History: Yes General: Other Ortho: Other (right humeral fracture with plates placed) - Present Medications Home Medications: Ambulatory Orders Medication Instructions Recorded Confirmed Albuterol [Proventil Hfa] 1 puffs INH Q4HR PRN 08/18/12 03/07/21 Baclofen 20 mg PO QID 08/18/12 03/07/21 DULoxetine [Cymbalta] 60 mg PO DAILY 08/18/12 03/07/21 Gabapentin [Neurontin] 300 mg PO BID@1000,1600 01/17/20 03/07/21 Levothyroxine [Synthroid] 75 mcg PO QDAC 01/17/20 03/07/21 Metformin HCl [Glucophage] 850 mg PO BID 01/17/20 03/07/21 Hydrocodone/Acetaminophen 1 each PO Q6HR PRN #10 tablet 01/20/20 03/07/21 [Hydrocodone-Acetamin 5-325 mg] Saccharomyces Boulardii [Florastor] 250 mg PO BIDWM #20 capsule 01/20/20 03/07/21 Sulfamethox/Trimeth 800/160 2 tab PO BID #40 tablet 01/20/20 [Bactrim Ds] Promethazine [Phenergan] 25 mg PO Q6H PRN #10 tab 03/07/21 Sulfamethox/Trimeth 800/160 1 each PO BID #14 tablet 03/07/21 [Bactrim Ds 800/160] - Allergies Allergies/Adverse Reactions: Allergies Allergy/AdvReac Type Severity Reaction Status Date / Time Penicillins Allergy Severe See Verified 03/07/21 04:47 comments - Social History Does the pt smoke?: Yes Smoking Status: Current every day smoker Does the pt drink ETOH?: Yes Does the pt have substance abuse?: Yes - POLST Patient has POLST: No POLST Status: Full Code PD ED PE NORMAL - Vitals Vital signs reviewed: Yes - General General: Alert and oriented X 3, No acute distress, Well developed/nourished (t) - HEENT HEENT: Other (tacky/past mucous membranes) - Neck Neck: Supple, no meningeal sign - Cardiac Cardiac: RRR, No murmur - Respiratory Respiratory: No respiratory distress, Clear bilaterally - Abdomen Abdomen: Normal bowel sounds, Soft, Non tender, Non distended - Back Back: No CVA TTP - Derm Derm: Normal color - Neuro Neuro: Alert and oriented X 3 Results - Vitals Vitals: Oxygen O2 Source Room air - Labs Labs: Microbiology 03/07/21 05:15 Urine Culture - Preliminary Urine,Clean Catch Laboratory Tests 03/07/21 03/07/21 03/07/21 05:10 05:15 05:15 WBC 10.4 RBC 3.98 L Hgb 12.6 Hct 35.7 L MCV 89.7 MCH 31.7 H MCHC 35.3 RDW 11.2 L Plt Count 219 MPV 9.1 Neut # (Auto) 8.7 H Lymph # (Auto) 0.7 L [place] # (Auto) 0.8 Eos # (Auto) 0.0 Baso # (Auto) 0.0 Absolute Nucleated RBC 0.00 Nucleated RBC % 0.0 Sodium 127 L Potassium 3.6 Chloride 94 L Carbon Dioxide 21 Anion Gap 12.0 BUN 10 Creatinine 0.7 Estimated GFR (MDRD) 90 Glucose 239 H POC Whole Bld Glucose 250 H Calcium 8.6 Total Bilirubin 0.6 AST 23 ALT 24 Alkaline Phosphatase 57 Total Protein 7.4 Albumin 3.4 Globulin 4.0 Albumin/Globulin Ratio 0.9 L Lipase 26 Urine Color Urine Clarity Urine pH Ur Specific [place] Urine Protein Urine Glucose (UA) Urine Ketones Urine Occult Blood Urine Nitrite Urine Bilirubin Urine Urobilinogen Ur Leukocyte Esterase Urine RBC Urine WBC Ur Squamous Epith Cells Urine Bacteria Ur Microscopic Review Urine Culture Comments Urine HCG, Qual Nasal Adenovirus (PCR) Nasal B. parapertussis DNA (PCR) Nasal Coronavir 229E PCR Nasal Coronavir HKU1 PCR Nasal Coronavir NL63 PCR Nasal Coronavir OC43 PCR Nasal Enterovir/Rhinovir PCR Nasal Influenza B PCR Nasal Influenza A PCR Nasal Parainfluen 1 PCR Nasal Parainfluen 2 PCR Nasal Parainfluen 3 PCR Nasal Parainfluen 4 PCR Nasal RSV (PCR) Nasal B.pertussis DNA PCR Nasal C.pneumoniae (PCR) Ramakrishna Human Metapneumo PCR Nasal M.pneumoniae (PCR) Nasal SARS-CoV-2 (PCR) 03/07/21 03/07/21 03/07/21 05:15 05:15 05:15 WBC RBC Hgb Hct MCV MCH MCHC RDW Plt Count MPV Neut # (Auto) Lymph # (Auto) [place] # (Auto) Eos # (Auto) Baso # (Auto) Absolute Nucleated RBC Nucleated RBC % Sodium Potassium Chloride Carbon Dioxide Anion Gap BUN Creatinine Estimated GFR (MDRD) Glucose POC Whole Bld Glucose Calcium Total Bilirubin AST ALT Alkaline Phosphatase Total Protein Albumin Globulin Albumin/Globulin Ratio Lipase Urine Color YELLOW Urine Clarity SL. CLOUDY Urine pH 6.5 Ur Specific [place] <=1.005 Urine Protein TRACE Urine Glucose (UA) 100 H Urine Ketones 40 H Urine Occult Blood SMALL H Urine Nitrite NEGATIVE Urine Bilirubin NEGATIVE Urine Urobilinogen 0.2 (NORMAL) Ur Leukocyte Esterase MODERATE H Urine RBC 6-10 H Urine WBC >25 H Ur Squamous Epith Cells RARE Squamous Urine Bacteria Moderate H Ur Microscopic Review INDICATED Urine Culture Comments INDICATED Urine HCG, Qual NEGATIVE Nasal Adenovirus (PCR) NOT DETECTED Nasal B. parapertussis DNA (PCR) NOT DETECTED Nasal Coronavir 229E PCR NOT DETECTED Nasal Coronavir HKU1 PCR NOT DETECTED Nasal Coronavir NL63 PCR NOT DETECTED Nasal Coronavir OC43 PCR NOT DETECTED Nasal Enterovir/Rhinovir PCR NOT DETECTED Nasal Influenza B PCR NOT DETECTED Nasal Influenza A PCR NOT DETECTED Nasal Parainfluen 1 PCR NOT DETECTED Nasal Parainfluen 2 PCR NOT DETECTED Nasal Parainfluen 3 PCR NOT DETECTED Nasal Parainfluen 4 PCR NOT DETECTED Nasal RSV (PCR) NOT DETECTED Nasal B.pertussis DNA PCR NOT DETECTED Nasal C.pneumoniae (PCR) NOT DETECTED Ramakrishna Human Metapneumo PCR NOT DETECTED Nasal M.pneumoniae (PCR) NOT DETECTED Nasal SARS-CoV-2 (PCR) NOT DETECTED PD MEDICAL DECISION MAKING - ED course Complexity details: reviewed results, re-evaluated patient, considered differential, d/w patient ED course: afebrile in ED. Her symptoms are suggestive of an infectious process without focal c/o nor exam findings to suggest a specific source. Urinalysis is strongly suggestive of UTI; although she did not offer urinary c/o in HPI, she indicates she has had some dysuria and frequency on ROS although not confidently so. She has a normal WBC and no CVAT; will treat for UTI based on the strength of findings on urinalysis, but it is unlikely this would explain her presenting symptoms (doubt pyelonephritis and thus would not have systemic/constitutional symptoms from simple UTI). she has hyponatremia (127), which could explain her symptoms (headache, general malaise, nausea) but would expect such symptoms to be associated with an even lower sodium level (to cause symptoms to this extent). Furthermore, her symptoms were only mildly improved after 2 liters NS. Her blood sugar is 250 on finger stick, 230s on serum testing. Only small amount of glucosuria and ketonuria. Her PCR respiratory panel, including COVID, is negative. I discussed these results with patient. I suspect a viral process that is not being detected on the respiratory panel, but will cover UTI with bactrim. she expresses concern that she has an infected cyst; after further discussion, it is apparent that she is concerned she might have a cutaneous abscess causing bacteremia and thus systemic symptoms/signs (based on her description of previous such incidents which are documented in [facility]). However, I point out that such abscesses (cutaneous) invariably have a specific area that is swollen and very painful/tender. She says she does not have any such areas at this time. She then says she is worried she might have a dental abscess, although again she has no dental or intraoral pain at this time; I do not see any evidence of intraoral infection including abscess on exam. Departure - Departure Disposition: 01 Home, Self Care Clinical Impression: Vomiting Qualifiers: Vomiting type: unspecified Vomiting Intractability: non-intractable Nausea presence: with nausea Qualified Code(s): R11.2 - Nausea with vomiting, unspecified Urinary tract infection Qualifiers: Urinary tract infection type: acute cystitis Hematuria presence: with hematuria Qualified Code(s): N30.01 - Acute cystitis with hematuria Condition: Good Instructions: ED UTI Cystitis Female, ED Nausea Vomiting Prescriptions: Sulfamethox/Trimeth 800/160 [Bactrim Ds 800/160] 1 each PO BID #14 tablet Promethazine [Phenergan] 25 mg PO Q6H PRN #10 tab PRN Reason: Nausea / Vomiting Comments: Prescriptions for an antibiotic and an antinausea medication have been electronically submitted to [facility] pharmacy in [place]. Discharge Date/Time: 03/07/21 09:02
[2021-03-07 05:29] LABS: BASOPHILS % (AUTO) 0.3 %; BILIRUBIN,URINE NEGATIVE (NEGATIVE); EOSINOPHILS % (AUTO) 0.1 %; GLUCOSE, URINE (UA) 100 mg/dL (NEGATIVE); HCT - HEMATOCRIT 35.7 % (37.0-47.0); HGB - HEMOGLOBIN 12.6 g/dL (12.0-16.0); KETONES,URINE (UA) 40 mg/dL (NEGATIVE); LEUKOCYTE ESTERASE, URINE MODERATE (NEGATIVE); LYMPHOCYTES # (AUTO) 0.7 10^3/uL (1.5-3.5); MEAN CORPUSCULAR HEMOGLOBIN 31.7 pg (27.0-31.0); MEAN CORPUSCULAR HGB CONC 35.3 g/dL (32.0-36.0); MEAN CORPUSCULAR VOLUME 89.7 fL (81.0-99.0); MEAN PLATELET VOLUME 9.1 fL (7.9-10.8); MONOCYTES # (AUTO) 0.8 10^3/uL (0.0-1.0); MONOCYTES % (AUTO) 7.9 %; NEUTROPHILS # (AUTO) 8.7 10^3/uL (1.5-6.6); NEUTROPHILS % (AUTO) 83.8 %; NITRITE,URINE NEGATIVE (NEGATIVE); OCCULT BLOOD,URINE SMALL (NEGATIVE); PH,URINE 6.5 PH (5.0-7.5); PLT - PLATELET COUNT 219 10^3/uL (130-450); PROTEIN,URINE TRACE mg/dL (NEGATIVE); RED BLOOD COUNT 3.98 10^6/uL (4.20-5.40); RED CELL DISTRIBUTION WIDTH 11.2 % (12.0-15.0); UROBILINOGEN,URINE 0.2 (NORMAL) E.U./dL (NORMAL); WHITE BLOOD COUNT 10.4 x10^3/uL (4.8-10.8)
[2021-03-07] MEDS ORDERED: SODIUM CHLORIDE 0.9% 1,000 ML IV STA ×2 (05:29→06:56)
[2021-03-07] MEDS ORDERED: KETOROLAC 30 MG/ML VIAL IVP STA (05:29)
[2021-03-07] MEDS ORDERED: ONDANSETRON 4 MG/2 ML VIAL IVP STA (05:29)
[2021-03-07 05:30] LABS: CLARITY,URINE SL. CLOUDY (CLEAR)
[2021-03-07 05:38] LABS: ALBUMIN 3.4 g/dL (3.2-5.5); ALBUMIN/GLOBULIN RATIO 0.9 (1.0-2.2); BACTERIA,URINE Moderate /HPF (None Seen); BILIRUBIN,TOTAL 0.6 mg/dL (0.2-1.0); CALCIUM 8.6 mg/dL (8.5-10.3); CREATININE 0.7 mg/dL (0.4-1.0); HCG UR QUAL NEGATIVE; POTASSIUM 3.6 mmol/L (3.5-5.0); SQUAMOUS EPITHELIAL CELL,UR RARE Squamous (<= Few); TOTAL PROTEIN 7.4 g/dL (6.7-8.2); WBC,URINE >25 /HPF (0-5)
[2021-03-07 06:21] LABS: CORONAVIRUS 229E-RESP PCR NOT DETECTED; CORONAVIRUS HKU1-RESP PCR NOT DETECTED; CORONAVIRUS NL63-RESP PCR NOT DETECTED; CORONAVIRUS OC43-RESP PCR NOT DETECTED; HUMAN METAPNEUMOVIRUS NOT DETECTED; INFLUENZA A- RESP PCR PANEL NOT DETECTED; RHINOVIRUS/ENTEROVIRUS NOT DETECTED; SARS-CoV-2 -RESP PCR PANEL NOT DETECTED
[2021-03-07 06:22] LABS: B. PARAPERTUSSIS- RESP PCR PAN NOT DETECTED; B. PERTUSSIS- RESP PCR PANEL NOT DETECTED; C. PNEUMONIAE- RESP PCR PANEL NOT DETECTED; INFLUENZA B - RESP PCR PANEL NOT DETECTED; M. PNEUMONIAE- RESP PCR PANEL NOT DETECTED; PARAINFLUENZA VIRUS 1 NOT DETECTED; PARAINFLUENZA VIRUS 2 NOT DETECTED; PARAINFLUENZA VIRUS 3 NOT DETECTED; PARAINFLUENZA VIRUS 4 NOT DETECTED; RSV- RESP PCR PANEL NOT DETECTED
[2021-03-07] MEDS ORDERED: SULFAMETH/TRIMETH DS 800/160 MG TABLET PO STA (06:55)
[2021-03-07] MEDS ORDERED: PROMETHAZINE INJ 25 MG in SODIUM CHLORIDE 0.9% 50 ML IV STA (06:55)
[2021-03-07] MEDS ORDERED: PROMETHAZINE 25 MG/1 ML VIAL ONE (07:07)
[2021-03-07 08:55] VITALS: BP 110/63
== END 2021-03-07 09:02 | disposition home or self-care (01) ==
LOC: ED 04:38
DX: N39.0 Urinary tract infection, site not specified (principal); R11.10 Vomiting, unspecified; F17.200 Nicotine dependence, unspecified, uncomplicated; Z20.822 Contact with and (suspected) exposure to COVID-19
CPT/HCPCS: 36415; 80053; 81001; 81025; 83690; 85025; 87077; 87086; 87181; 87631; 96365; 96375; 99282; 99284; A9270; J7040; 0202U; 81003

== ENCOUNTER 2021-06-07 11:38 | Outpatient (CLI) | payer MEDICARE, MEDICAID ==
--- NOTE | 2021-06-07 12:02 | XRAY Report ---
PROCEDURE: Humerus RT INDICATIONS: ARM PAIN, RIGHT TECHNIQUE: 2 views of the humerus were acquired. COMPARISON: X-ray 11/02/2010 FINDINGS: Bones: No acute fractures or dislocations. No suspicious bony lesions. Left humeral pin rut fixati on is present. Hardware is intact without evidence of hardware fracture or periprosthetic loosening. There is callus formation at site of old fracture within the mid humerus. There is good anatomic alig nment. Minimal arthritic changes are noted at the shoulder. Soft tissues: No suspicious soft tissue calcifications. IMPRESSION: Postsurgical changes as well as healed old fracture. No acute process is identified. Reviewed by: Sylvie Talavera MD on 06/07/2021 12:01 PM [facility] Approved by: Sylvie Talavera MD on 06/07/2021 12:01 PM [facility] Station ID: [id number]
[2021-06-07 15:24] LABS: ESTIMATED AVERAGE GLUCOSE 114 mg/dL (70-100); HEMOGLOBIN A1c% 5.6 % (4.27-6.07)
[2021-06-07 15:48] LABS: THYROID STIMULATING HORMONE 2.47 uIU/mL (0.34-5.60)
[2021-06-07 16:16] LABS: LUTEINIZING HORMONE 6.85 mIU/mL
== END 2021-06-07 11:39 | disposition home or self-care (01) ==
LOC: DI.S 11:38
PROVIDERS: ATTEND Internal Medicine
DX: M79.601 Pain in right arm (principal); Z78.0 Asymptomatic menopausal state; E11.9 Type 2 diabetes mellitus without complications; E03.9 Hypothyroidism, unspecified; S42.302D Unspecified fracture of shaft of humerus, left arm, subsequent encounter for fracture with routine healing
CPT/HCPCS: 36415; 81599; 83002; 83036; 84443

== ENCOUNTER 2022-08-07 07:00 | Outpatient (CLI) | payer MEDICARE, MEDICAID ==
--- NOTE | 2022-08-07 09:48 | XRAY Report ---
PROCEDURE: Humerus RT INDICATIONS: RIGHT ARM PAIN TECHNIQUE: 2 views of the humerus were acquired. COMPARISON: X-ray 06/07/2021. FINDINGS: Bones: Prior humeral ORIF, without hardware complication. Similar irregular bony deformity of the mi d humeral shaft. Soft tissues: No suspicious soft tissue calcifications or masses. IMPRESSION: Prior humeral ORIF, without hardware complication. Reviewed by: Leonid Shah on 08/07/2022 9:47 AM PDT Approved by: Leonid Shah on 08/07/2022 9:47 AM PDT Station ID: [id number]
== END 2022-08-07 23:59 | disposition home or self-care (01) ==
LOC: DI.S 07:00
PROVIDERS: ATTEND Physician Assistant
DX: M79.601 Pain in right arm (principal)

== ENCOUNTER 2022-09-12 08:00 | Outpatient (CLI) | payer MEDICARE, MEDICAID | END 2022-09-12 23:59 | disposition home or self-care (01) | LOC: LAB.S 08:00 | PROVIDERS: ATTEND Emergency Medicine | DX: L02.31 Cutaneous abscess of buttock (principal) | CPT/HCPCS: 87070; 87077; 87181; 87205 ==

== ENCOUNTER 2022-10-20 14:59 | Outpatient (CLI) | payer MEDICARE, MEDICAID ==
--- NOTE | 2022-10-21 09:01 | Mammography Report ---
BILATERAL FIRST EVER DIGITAL SCREENING MAMMOGRAM 3D/2D: 10/20/2022 CLINICAL: Routine screening. Baseline exam. No prior exams were available for comparison. There are scattered areas of fibroglandular density in both breasts (category b / 25%-50% glandular t issue). No significant masses, calcifications, or other findings are seen in either breast. IMPRESSION: NEGATIVE There is no mammographic evidence of malignancy. A 1 year screening mammogram is recommended. Based on the Tyrer Cuzick model (a risk assessment model) the patients lifetime risk is 7.2% and her 10 year risk is 1.4%. According to the ACR, ACS, and NCCN guidelines, an annual breast MRI exam joseph g with mammogram is recommended if the patients lifetime risk is 20% or greater. This exam was interpreted at Station ID: [id number]. NOTE: For mammograms, a report in lay terms will be sent to the patient. Approximately 15% of breast malignancies will not be visualized mammographically. In the management of a palpable breast mass, a negative mammogram must not discourage biopsy of a clinically suspicious lesion. Electronically Signed By: Hector cross/dru:10/21/2022 07:17:53 letter sent: No_Letter ACR BI-RADS Category 1: Negative 3341F PARENCHYMAL PATTERN: (A) - The breast(s) demonstrate(s) scattered fibroglandular densities. BI-RADS CATEGORY: (1) - 1 Mammogram 20231021 1 year screening LATERALITY: (B)
== END 2022-10-20 15:00 | disposition home or self-care (01) ==
LOC: DI.S 14:59
PROVIDERS: ATTEND Nurse Practitioner Acute Care
DX: Z12.31 Encounter for screening mammogram for malignant neoplasm of breast (principal)

== ENCOUNTER 2023-11-05 07:09 | Outpatient (CLI) | payer MEDICARE, MEDICAID ==
--- NOTE | 2023-11-05 10:54 | XRAY Report ---
Shoulder 2+V LT HISTORY: 48 years of age, LEFT SHOULDER JOINT PAIN TECHNIQUE: Shoulder 2+V LT COMPARISON: None. FINDINGS/IMPRESSION: The acromioclavicular joint is unremarkable. Mild degenerative change of the glenohumeral joint. Mult iple ossifications projecting over the left proximal humeral metaphysis, concerning for ossified bodi es within the bicipital sheath. No acute fracture or dislocation. Reviewed by: Odilia Whitfield MD on 11/05/2023 10:52 AM PDT Approved by: Odilia Whitfield MD on 11/05/2023 10:52 AM PDT Station ID: [id number]
[2023-11-05 16:00] LABS: CK- CREATINE KINASE 73 IU/L (30-223); CRP - C-REACTIVE PROTEIN < 0.5 mg/dL (<0.5)
== END 2023-11-05 07:10 | disposition home or self-care (01) ==
LOC: DI.S 07:09
PROVIDERS: ATTEND Internal Medicine
DX: M19.012 Primary osteoarthritis, left shoulder (principal)
CPT/HCPCS: 36415; 82550; 85651; 86140

== ENCOUNTER 2023-11-26 08:00 | Outpatient (CLI) | payer MEDICAID, MEDICARE ==
--- NOTE | 2023-11-26 19:14 | XRAY Report ---
PROCEDURE: Elbow 3+V RT INDICATIONS: RIGHT ELBOW PAIN TECHNIQUE: 3 views of the elbow were acquired. COMPARISON: None FINDINGS: Bones: Instrumented old distal humeral fracture deformity, partially visualized. No evidence of acut e fracture Soft tissues: No elbow joint effusion. No suspicious soft tissue calcifications. IMPRESSION: No acute fracture. There is distal humeral instrumented fracture deformity is well-healed. No evidenc e of hardware failure Reviewed by: Salas Tejada MD on 11/26/2023 6:13 PM PREMA Approved by: Salas Tejada MD on 11/26/2023 6:13 PM AKAHMET Station ID: [id number]
== END 2023-11-26 23:59 | disposition home or self-care (01) ==
LOC: DI.S 08:00
PROVIDERS: ATTEND Emergency Medicine
DX: S50.01XA Contusion of right elbow, initial encounter (principal)